=== PATIENT | male | born 1960 | race Caucasian/White ===

== ENCOUNTER 2017-07-28 15:13 | Inpatient (IN) | payer OTHER ==
--- NOTE | 2017-07-28 18:15 | HP ---
Admission ROS [facility] - [facility] Chief Complaint: I WANT TO GO TO REHAB Allergies/Adverse Reactions: Allergies Allergy/AdvReac Type Severity Reaction Status Date / Time No Known Allergies Allergy Verified 03/22/15 17:15 History of Present Illness: 56 YEARS OLD MALE WITH LONG HISTORY OF ALCOHOL NICOTINE DEPENDENCE HAS CHRONIC BACK PAIN, SURGICAL REPAIRED 12/2016 AMBULATE WITH CANE AND DEPRESSION IS ADMITTED TO REHAB Exam Limitations: No Limitations - Ebola screening Have you traveled outside of the country in the last 21 days: No Have you had contact with anyone from an Ebola affected area: No Have you been sick,other than usual withdrawal symptoms: No Do you have a fever: No - Review of Systems Constitutional: Changes in sleep, Weight Stable EENT: reports: Blurred Vision (EYE GLASSES) Respiratory: reports: No Symptoms reported Cardiac: reports: No Symptoms Reported GI: reports: Indigestion : reports: No Symptoms Reported Musculoskeletal: reports: Back Pain, Muscle Weakness (BOTH LEGS) Integumentary: reports: No Symptoms Reported Neuro: reports: No Symptoms reported Endocrine: reports: No Symptoms Reported Hematology: reports: No Symptoms Reported Psychiatric: reports: Judgement Intact, Orientated x3, Anxious, Depressed Other Systems: Reviewed and Negative Patient History - Patient Medical History Hx Anemia: No Hx Asthma: No Hx Chronic Obstructive Pulmonary Disease (COPD): No Hx Cancer: No Hx Cardiac Disorders: No Hx Congestive Heart Failure: No Hx Hypertension: Yes (DIETARY CONTROL) Hx Hypercholesterolemia: No Hx Pacemaker: No HX Cerebrovascular Accident: No Hx Seizures: No Hx Dementia: No Hx Diabetes: No Hx Gastrointestinal Disorders: Yes (epigastric hernia) Hx Liver Disease: No Hx Genitourinary Disorders: No Hx Sexually Transmitted Disorders: No Hx Renal Disease (ESRD): No Hx Thyroid Disease: No Hx Human Immunodeficiency Virus (HIV): No Hx Hepatitis C: Yes (PROCESS OF TREATMENT) Hx Depression: Yes (08/23 last) Hx Suicide Attempt: No Hx Bipolar Disorder: No Hx Schizophrenia: No - Patient Surgical History Past Surgical History: Yes Hx Neurologic Surgery: Yes (NEUROPATHY) Hx Cataract Extraction: No Hx Cardiac Surgery: No Hx Lung Surgery: No Hx Breast Surgery: No Hx Breast Biopsy: No Hx Abdominal Surgery: No Hx Appendectomy: No Hx Cholecystectomy: No Hx Genitourinary Surgery: No Hx Orthopedic Surgery: Yes (12/2016) Other Surgical History: s/p back surgery for herniated disc Anesthesia Reaction: No - PPD History Previous Implant?: Yes Documented Results: Positive w/proof Implanted On Prior [facility] Admission?: No PPD to be Administered?: No - Smoking Cessation Smoking history: Current every day smoker Have you smoked in the past 12 months: Yes Aproximately how many cigarettes per day: 10 Cigars Per Day: 0 Hx Chewing Tobacco Use: No Initiated information on smoking cessation: Yes 'Breaking Loose' booklet given: 07/28/17 - Substance & Tx. History Hx Alcohol Use: Yes Hx Substance Use: No Substance Use Type: Alcohol Hx Substance Use Treatment: Yes (07/2017 [facility]) - Substances Abused Alcohol Route: Oral Frequency: Daily Amount used: FIFTH VOLKA Age of first use: 16 Date of Last Use: 07/21/17 Family Disease History - Family Disease History Family Disease History: Heart Disease: Mother, CA: Father (/), Other: Father Admission Physical Exam [facility] - Vital Signs Vital Signs: Vital Signs - 24 hr 07/28/17 17:26 Temperature 97.7 F Pulse Rate 80 Respiratory 20 Rate Blood Pressure 143/95 - Physical General Appearance: Yes: No Apparent Distress, Nourished, Appropriately Dressed HEENTM: Yes: Hearing grossly Normal, Normal ENT Inspection, Normocephalic, Normal Voice Respiratory: Yes: Chest Non-Tender, Lungs Clear, Normal Breath Sounds, No Respiratory Distress, No Accessory Muscle Use Neck: Yes: Supple, Trachea in good position Breast: Yes: Breasts Symetrical Cardiology: Yes: Regular Rhythm, Regular Rate, S1, S2 Abdominal: Yes: Normal Bowel Sounds, Non Tender, Soft Genitourinary: Yes: Within Normal Limits Back: Yes: Normal Inspection Musculoskeletal: Yes: full range of Motion, Gait Steady (CANE), Back pain, Muscle Pain, Muscle weakness (LEGS) Extremities: Yes: Normal Inspection, Normal Range of Motion (CANE), Non-Tender Neurological: Yes: Fully Oriented, Alert, Normal Response, Depressed Affect Integumentary: Yes: Warm Lymphatic: Yes: Within Normal Limits - Diagnostic (1) Nicotine dependence Current Visit: Yes Status: Acute Qualifiers: Nicotine product type: cigarettes Substance use status: in withdrawal Qualified Code(s): F17.213 - Nicotine dependence, cigarettes, with withdrawal (2) Low back pain Current Visit: Yes Status: Chronic Qualifiers: Chronicity: chronic Back pain laterality: bilateral Sciatica presence: with sciatica Sciatica laterality: bilateral sciatica Qualified Code(s): M54.42 - Lumbago with sciatica, left side; M54.41 - Lumbago with sciatica, right side; G89.29 - Other chronic pain (3) Alcohol dependence with uncomplicated withdrawal Current Visit: Yes Status: Acute (4) GERD (gastroesophageal reflux disease) Current Visit: Yes Status: Chronic Qualifiers: Esophagitis presence: without esophagitis Qualified Code(s): K21.9 - Gastro-esophageal reflux disease without esophagitis (5) Hepatitis C carrier Current Visit: Yes Status: Chronic Comment: PROCESSING OF TREATMENT (6) Neuropathy Current Visit: Yes Status: Chronic (7) Depression (emotion) Current Visit: Yes Status: Suspected Qualifiers: Depression Type: dysthymia Qualified Code(s): F34.1 - Dysthymic disorder (8) Use of cane as ambulatory aid Current Visit: Yes Status: Chronic Cleared for Admission S - Detox or Rehab [facility] Level of Care: Observation Bed Detox Regimen/Protocol: Not Applicable [facility] Breath Alcohol Content Breath Alcohol Content: 0 Vital Signs - Vital Signs Vital Signs Refused: No - Height Height: 5 ft 7 in - Weight Weight: 175 lb Weight Measurement Method: Standing Scale Body Mass Index (BMI): 27.3 - Bowel Function Bowel Movement: Yes Urine Drug Screen - Results Drug Screen Negative: No Urine Drug Screen Results: BZO-Benzodiazepines
[2017-07-28 18:21] VITALS: BMI 27.3
[2017-07-28] MEDS ORDERED: MENTHOL/PHENOL 1 EACH UD MM PRN (18:31)
[2017-07-28] MEDS ORDERED: P-EPHED 60MG/TRIPROLIDI 2.5MG TABLET PO PRN (18:31)
[2017-07-28] MEDS ORDERED: LOPERAMIDE HCL 2 MG CAPSULE PO PRN (18:31)
[2017-07-28] MEDS ORDERED: guaiFENesin/D-METHORPHAN HB 10 ML UNIT-DOSE CUPS PO PRN (18:31)
[2017-07-28] MEDS ORDERED: hydrOXYzine PAMOATE 50 MG CAPSULE (FP) PO PRN (18:31)
[2017-07-28] MEDS ORDERED: MAGNESIUM CITRATE 300 ML BOTTLE PO PRN (18:31)
[2017-07-28] MEDS ORDERED: MAGNESIUM HYDROX 2400MG/30ML ORAL SUSPENSION 30 ML CUP PO PRN (18:31)
[2017-07-28] MEDS: GABAPENTIN 400 MG CAPSULE (FP) PO SCH (22:15)
[2017-07-28] MEDS: RANITIDINE HCL 150 MG TABLET (FP) PO SCH (22:15)
[2017-07-28] MEDS: THIAMINE HCL 100 MG TABLET (FP) PO SCH (22:16)
[2017-07-28 23:31] LABS: URINE APPEARANCE CLOUDY; URINE BILIRUBIN NEGATIVE (NEGATIVE); URINE BLOOD NEGATIVE (NEGATIVE); URINE COLOR DKYELLOW; URINE GLUCOSE (UA) NEGATIVE (NEGATIVE); URINE KETONE TRACE (NEGATIVE); URINE LEUK ESTERASE NEGATIVE (NEGATIVE); URINE NITRITE NEGATIVE (NEGATIVE); URINE PROTEIN NEGATIVE (NEGATIVE); URINE UROBILINOGEN NEGATIVE mg/dL (0.2-1.0)
[2017-07-29] MEDS: GABAPENTIN 400 MG CAPSULE (FP) PO SCH ×3 (06:15→21:45)
[2017-07-29] MEDS: PRENATAL VITAMINS W/ FOLIC ACID TABLET (FP) PO SCH (10:40)
[2017-07-29] MEDS: RANITIDINE HCL 150 MG TABLET (FP) PO SCH ×2 (10:40→21:45)
[2017-07-29] MEDS: NICOTINE 14 MG/24 HOURS TOPICAL PATCH TD SCH (10:40)
[2017-07-29] MEDS: PATIENT'S OWN MEDICATION (NON-FORMULARY) (Elbasvir/Grazoprevir [Zepatier 50-100 Mg Tablet] PO SCH (10:40)
[2017-07-29] MEDS: NICOTINE POLACRILEX 2 MG GUM BC PRN (10:42)
[2017-07-29] MEDS ORDERED: GABAPENTIN 400 MG CAPSULE (FP) PO ONE (11:12)
[2017-07-29] MEDS ORDERED: PNEUMOCOCCAL 23 VACCINE 0.5 ML VIAL IM ONE (12:00)
[2017-07-29] MEDS ORDERED: PNEUMOC 13-VAL CONJ-DIP CRM/PF 0.5 ML DISP.SYRIN IM ONE (12:00)
[2017-07-29 14:08] LABS: MCH 28.2 pg (25.7-33.7); MCHC 32.2 g/dl (32.0-35.9); MEAN CELL VOLUME 87.7 fl (80-96); MEAN PLT VOLUME 9.3 fl (7.5-11.1); PLATELET COUNT 224 K/MM3 (134-434); RDW 16.6 % (11.9-15.9); WHITE BLOOD COUNT 7.4 K/mm3 (4.0-10.0)
[2017-07-29 14:17] LABS: CALCIUM 9.3 mg/dL (8.5-10.1)
[2017-07-29 14:24] LABS: ALK PHOS 73 U/L (45-117); ANION GAP 9 (8-16); BILIRUBIN,TOTAL 0.6 mg/dL (0.2-1.0); CO2 30 mmol/L (21-32); GLUCOSE,RANDOM 157 mg/dL (74-106); SGOT/AST 14 U/L (15-37); SGPT/ALT 19 U/L (12-78); TOT PROT 7.3 g/dl (6.4-8.2)
--- NOTE | 2017-07-29 15:33 | HP ---
Psychiatrist Admission - Data Date of interview: 07/29/17 Admission source: [facility] Identifying data: THis is the first 5N inpatient rehabilitation admissoon for this 56 year old male unemployed supported by on welfare, residing in the [place], he is a father of 4. Medical History: HTN, Asthma, Back-pain, Hep C, Sciatica, smokes cigarettes 4 a day. 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 Reports started to see a psychiatrist 3 years ago, reports 3 psychiatric hospitalizations at [facility] and [place],most recently visited [facility] due to suicidal thoughts, was there 2 days for observations, was provided with medication Zoloft 50 mg po hs, Ambien 10, sees at [facility]. Reports having panic attacks, with SOB and sweats. Physical/Sexual Abuse/Trauma History: see the above Vital Signs: Vital Signs - 24 hr 07/28/17 07/28/17 07/29/17 17:26 22:10 03:30 Temperature 97.7 F 97.7 F Pulse Rate 80 71 Respiratory 20 18 16 Rate Blood Pressure 143/95 140/79 07/29/17 07:23 Temperature 97.3 F L Pulse Rate 71 Respiratory 18 Rate Blood Pressure 102/77 Allergies/Adverse Reactions: Allergies Allergy/AdvReac Type Severity Reaction Status Date / Time No Known Allergies Allergy Verified 03/22/15 17:15 Date of last physical exam: 07/28/17 Concur with the findings of this exam: Yes - Substance Abuse/Tx History Hx Alcohol Use: Yes (vodka 3 pints a day ) Hx Substance Use: No Substance Use Type: None Hx Substance Use Treatment: Yes - Admission Criteria Previous failed treatment: Yes Poor recovery environment: Yes Comorbidities: Yes Lacks judgement: Yes Mental Status Exam - Mental Status Exam Alert and Oriented to: Time, Place, Person Cognitive Function: Grossly Intact Patient Appearance: Well Groomed Mood: Depressed, Sad, Anxious Affect: Appropriate, Mood Congruent Patient Behavior: Appropriate, Cooperative Speech Pattern: Appropriate Voice Loudness: Normal Thought Process: Intact, Goal Oriented Thought Disorder: Not Present Hallucinations: Denies Suicidal Ideation: Denies Homicidal Ideation: Denies Insight/Judgement: Fair Sleep: Poorly, Difficulty falling asleep Appetite: Fair Muscle strength/Tone: Normal Gait/Station: Other (walking with a cane) Psychiatric Findings - Problem List ([place] 1, 2,3) (1) Nicotine dependence Current Visit: Yes Status: Acute Qualifiers: Nicotine product type: cigarettes Substance use status: in withdrawal Qualified Code(s): F17.213 - Nicotine dependence, cigarettes, with withdrawal (2) GERD (gastroesophageal reflux disease) Current Visit: Yes Status: Chronic Qualifiers: Esophagitis presence: without esophagitis Qualified Code(s): K21.9 - Gastro-esophageal reflux disease without esophagitis (3) Hepatitis C carrier Current Visit: Yes Status: Chronic Comment: PROCESSING OF TREATMENT (4) Use of cane as ambulatory aid Current Visit: Yes Status: Chronic (5) MDD (major depressive disorder) Current Visit: Yes Status: Acute (6) PTSD (post-traumatic stress disorder) Current Visit: Yes Status: Acute - Initial Treatment Plan Initial Treatment Plan: will restart Zoloft 25 mg po daily, add seroquel 25 mg po hs, continue to monitor progress.
[2017-07-29] MEDS: QUEtiapine FUMARATE 25 MG TABLET (FP) PO SCH (21:45)
[2017-07-29] MEDS: THIAMINE HCL 100 MG TABLET (FP) PO SCH (21:46)
--- NOTE | 2017-07-29 22:27 | EKG ---
Test Reason : Blood Pressure : / mmHG Vent. Rate : 068 BPM Atrial Rate : 068 BPM P-R Int : 158 ms QRS Dur : 086 ms QT Int : 368 ms P-R-T Axes : 066 018 024 degrees QTc Int : 391 ms NORMAL SINUS RHYTHM MODERATE VOLTAGE CRITERIA FOR LVH, MAY BE NORMAL VARIANT RSR' PATTERN IN V1 BORDERLINE ECG NO PREVIOUS ECGS AVAILABLE REPEAT EKG IF CLINICALLY INDICATED Confirmed by SPRING CARRASQUILLO MD ([id number] on 07/29/2017 10:27:12 PM Referred By: Confirmed By:SPRING CARRASQUILLO MD
[2017-07-30] MEDS: GABAPENTIN 400 MG CAPSULE (FP) PO SCH ×3 (06:50→21:45)
[2017-07-30] MEDS: RANITIDINE HCL 150 MG TABLET (FP) PO SCH ×2 (10:44→21:45)
[2017-07-30] MEDS: PRENATAL VITAMINS W/ FOLIC ACID TABLET (FP) PO SCH (10:44)
[2017-07-30] MEDS: SERTRALINE HCL 50 MG TABLET (FP) PO SCH (10:44)
[2017-07-30] MEDS: PATIENT'S OWN MEDICATION (NON-FORMULARY) (Elbasvir/Grazoprevir [Zepatier 50-100 Mg Tablet] PO SCH (10:44)
[2017-07-30] MEDS: NICOTINE 14 MG/24 HOURS TOPICAL PATCH TD SCH (10:45)
[2017-07-30] MEDS: NICOTINE POLACRILEX 2 MG GUM BC PRN (14:17)
[2017-07-30] MEDS: QUEtiapine FUMARATE 25 MG TABLET (FP) PO SCH (21:45)
[2017-07-30] MEDS: THIAMINE HCL 100 MG TABLET (FP) PO SCH (21:45)
[2017-07-30] MEDS: diphenhydrAMINE HCL 50 MG CAPSULE PO PRN (21:46)
[2017-07-31] MEDS: GABAPENTIN 400 MG CAPSULE (FP) PO SCH ×3 (06:09→21:49)
[2017-07-31] MEDS: RANITIDINE HCL 150 MG TABLET (FP) PO SCH ×2 (10:39→21:49)
[2017-07-31] MEDS: PRENATAL VITAMINS W/ FOLIC ACID TABLET (FP) PO SCH (10:39)
[2017-07-31] MEDS: NICOTINE 14 MG/24 HOURS TOPICAL PATCH TD SCH (10:39)
[2017-07-31] MEDS: SERTRALINE HCL 50 MG TABLET (FP) PO SCH (10:40)
[2017-07-31] MEDS: PATIENT'S OWN MEDICATION (NON-FORMULARY) (Elbasvir/Grazoprevir [Zepatier 50-100 Mg Tablet] PO SCH (11:00)
[2017-07-31] MEDS: THIAMINE HCL 100 MG TABLET (FP) PO SCH (21:49)
[2017-07-31] MEDS: diphenhydrAMINE HCL 50 MG CAPSULE PO PRN (21:49)
[2017-07-31] MEDS: QUEtiapine FUMARATE 25 MG TABLET (FP) PO SCH (21:49)
[2017-08-01] MEDS: GABAPENTIN 400 MG CAPSULE (FP) PO SCH ×3 (06:05→21:44)
[2017-08-01] MEDS: NICOTINE 14 MG/24 HOURS TOPICAL PATCH TD SCH (10:32)
[2017-08-01] MEDS: RANITIDINE HCL 150 MG TABLET (FP) PO SCH ×2 (10:32→21:44)
[2017-08-01] MEDS: SERTRALINE HCL 50 MG TABLET (FP) PO SCH ×2 (10:32→12:03)
[2017-08-01] MEDS: PRENATAL VITAMINS W/ FOLIC ACID TABLET (FP) PO SCH (10:32)
[2017-08-01] MEDS: PATIENT'S OWN MEDICATION (NON-FORMULARY) (Elbasvir/Grazoprevir [Zepatier 50-100 Mg Tablet] PO SCH (10:35)
--- NOTE | 2017-08-01 10:49 | PN ---
Psychiatric Progress Note Vital Signs: Vital Signs Period Temp Pulse Resp BP Sys/Taylor Pulse Ox Last 24 Hr 97.5 F 74 16-18 139/85 Date of Session: 08/01/17 Chief Complaint:: "I am anxious, I hear voices" HPI: Patient is addressing alcohol, nicotine dependence comorbid PTSD, MDD. ROS: HTN, Asthma, Back-pain, Hep C, Sciatica medically managed. Current Medications: Active Medications Generic Name Dose Route Start Last Admin Trade Name Freq PRN Reason Stop Dose Admin Acetaminophen 650 mg 07/28/17 18:31 Tylenol - PO Q4H PRN PAIN Al Hydroxide/Mg Hydroxide 30 ml 07/28/17 18:31 Mylanta Oral Suspension - PO Q6H PRN DYSPEPSIA Diphenhydramine HCl 50 mg 07/28/17 18:31 07/31/17 21:49 Benadryl - PO 50 mg HSMR1 PRN Administration INSOMNIA Eucalyptus/Menthol/Phenol/Sorbitol 1 each 07/28/17 18:31 Cepastat Lozenge - MM Q4H PRN SORE THROAT Gabapentin 800 mg 07/28/17 22:00 08/01/17 06:05 Neurontin - PO 800 mg TID NEISHA Administration Guaifenesin 10 ml 07/28/17 18:31 Robitussin Dm - PO Q6H PRN COUGH Hydroxyzine Pamoate 50 mg 07/28/17 18:31 Vistaril - PO Q4H PRN AGITATION Loperamide HCl 4 mg 07/28/17 18:31 Imodium - PO Q6H PRN DIARRHEA Magnesium Citrate 300 ml 07/28/17 18:31 Citroma - PO Q48H PRN CONSTIPATION Magnesium Hydroxide 30 ml 07/28/17 18:31 Milk Of Magnesia - PO DAILY PRN CONSTIPATION Nicotine 14 mg 07/29/17 10:00 08/01/17 10:32 Nicoderm Patch - TD 14 mg DAILY NEISHA Administration Nicotine Polacrilex 2 mg 07/28/17 18:31 07/30/17 14:17 Nicorette Gum - BC 2 mg Q2H PRN Administration NICOTINE REPLACEMENT RX Non-Formulary Medication 1 each 07/29/17 10:00 08/01/17 10:35 Elbasvir/Grazoprevir [Zepatier 50-100 Mg Tablet] PO 1 each DAILY NEISHA Administration Multivit/Folic Acid/Iron 1 tab 07/29/17 10:00 08/01/17 10:32 Vitamins ([facility]) - PO 1 tab DAILY NEISHA Administration Pseudoephedrine/Triprolidine 1 combo 07/28/17 18:31 Actifed - PO TID PRN NASAL CONGESTION Quetiapine Fumarate 75 mg 08/01/17 10:39 Seroquel - PO HS NEISHA Ranitidine HCl 150 mg 07/28/17 22:00 08/01/17 10:32 Zantac - PO 150 mg BID NEISHA Administration Sertraline HCl 100 mg 08/01/17 10:39 Zoloft - PO DAILY NEISHA Thiamine HCl 100 mg 07/28/17 22:00 07/31/17 21:49 Vitamin B1 - PO 100 mg HS NEISHA Administration Current Side Effect: No Lab tests ordered: No Lab tests reviewed: Yes Provider note:: Patient reports he feels very anxious and hears voices, people screeming, calling for help, states all this related to his experience on 07/21, having flashbacks to this traumatic event in 2000. Patient reports he is able to address it in groups but he gats very emotinal. Supportive therapy provided , ways to reduce stress discussed. Psychoducation regarding his current medications provided, recommended to increase Seroquel 75 mg po hs and Zoloft to 100 mg po daily, patient agreed with care plan. Will continue to monitor progress. Total face to face time:: 35 Mental Status Exam - Mental Status Exam Alert and Oriented to: Time, Place, Person Cognitive Function: Good Patient Appearance: Well Groomed Mood: Depressed, Sad, Anxious Affect: Mood Congruent, Blunted, Constricted Patient Behavior: Cooperative Speech Pattern: Appropriate Voice Loudness: Normal Thought Process: Goal Oriented Thought Disorder: Not Present Hallucinations: Auditory (people screaming for help) Suicidal Ideation: Denies Homicidal Ideation: Denies Insight/Judgement: Fair Sleep: Poorly Appetite: Fair Muscle strength/Tone: Normal Gait/Station: Other (walking with cane) Psychiatric Treatment Plan - Problem List (1) Nicotine dependence Current Visit: Yes Qualifiers: Nicotine product type: cigarettes Substance use status: in withdrawal Qualified Code(s): F17.213 - Nicotine dependence, cigarettes, with withdrawal (2) GERD (gastroesophageal reflux disease) Current Visit: Yes Qualifiers: Esophagitis presence: without esophagitis Qualified Code(s): K21.9 - Gastro-esophageal reflux disease without esophagitis (3) Hepatitis C carrier Current Visit: Yes Comment: PROCESSING OF TREATMENT (4) Use of cane as ambulatory aid Current Visit: Yes (5) MDD (major depressive disorder) Current Visit: Yes (6) PTSD (post-traumatic stress disorder) Current Visit: Yes
[2017-08-01] MEDS: QUEtiapine FUMARATE 25 MG TABLET (FP) PO SCH ×2 (12:03→21:44)
--- NOTE | 2017-08-01 12:46 | PN ---
S Progress Note Note: PT REQUESTING LIDOCAINE PATCH FOR CHRONIC LOW BACK PAIN. STATUS POST TRAUMA/ SURGERY MED. ORDERED.
--- NOTE | 2017-08-01 12:49 | PN ---
[facility] Progress Note (SOAP) Subjective: PATIENT C/O CHRONIC LOW BACK PAIN S/P SURGERY 2/2 TRAUMA Objective: 08/01/17 12:47 Vital Signs - 8 hr 08/01/17 06:55 Temperature 97.5 F L Pulse Rate 74 Respiratory 16 Rate Blood Pressure 139/85 Laboratory Tests 07/28/17 07/29/17 07/29/17 23:10 08:30 08:30 WBC 7.4 D RBC 5.01 Hgb 14.1 Hct 43.9 MCV 87.7 MCH 28.2 MCHC 32.2 RDW 16.6 H Plt Count 224 MPV 9.3 Sodium 139 Potassium 4.2 Chloride 100 Carbon Dioxide 30 Anion Gap 9 BUN 17 Creatinine 1.0 Creat Clearance w eGFR > 60 POC Glucometer Random Glucose 157 H D Calcium 9.3 Total Bilirubin 0.6 D AST 14 L D ALT 19 D Alkaline Phosphatase 73 Total Protein 7.3 Albumin 4.0 Urine Color Dkyellow Urine Appearance Cloudy Urine pH 8.0 D Ur Specific Occidental 1.015 Urine Protein Negative Urine Glucose (UA) Negative Urine Ketones Trace H Urine Blood Negative Urine Nitrite Negative Urine Bilirubin Negative Urine Urobilinogen Negative RPR Titer 07/29/17 08/01/17 08:30 06:27 WBC RBC Hgb Hct MCV MCH MCHC RDW Plt Count MPV Sodium Potassium Chloride Carbon Dioxide Anion Gap BUN Creatinine Creat Clearance w eGFR POC Glucometer 85 Random Glucose Calcium Total Bilirubin AST ALT Alkaline Phosphatase Total Protein Albumin Urine Color Urine Appearance Urine pH Ur Specific Occidental Urine Protein Urine Glucose (UA) Urine Ketones Urine Blood Urine Nitrite Urine Bilirubin Urine Urobilinogen RPR Titer Nonreactive Assessment: 08/01/17 12:47 CHRONIC LOW BACK 2/2 TRAUMA, BILATEERAL SCARS ON LOWER BACK S/P SURGERY, NO INFECTION MOVING WITH CANE Plan: LIDODERM PATCH ORDERED.
[2017-08-01] MEDS: LIDOCAINE 5% TOPICAL PATCH TP SCH (14:24)
[2017-08-01] MEDS: THIAMINE HCL 100 MG TABLET (FP) PO SCH (21:44)
[2017-08-01] MEDS: diphenhydrAMINE HCL 50 MG CAPSULE PO PRN (21:45)
[2017-08-01] MEDS: LIDOCAINE PATCH REMOVAL MC SCH (21:45)
[2017-08-02] MEDS: GABAPENTIN 400 MG CAPSULE (FP) PO SCH ×3 (06:02→21:08)
[2017-08-02] MEDS: SERTRALINE HCL 50 MG TABLET (FP) PO SCH (10:48)
[2017-08-02] MEDS: PRENATAL VITAMINS W/ FOLIC ACID TABLET (FP) PO SCH (10:48)
[2017-08-02] MEDS: NICOTINE 14 MG/24 HOURS TOPICAL PATCH TD SCH (10:48)
[2017-08-02] MEDS: RANITIDINE HCL 150 MG TABLET (FP) PO SCH ×2 (10:48→21:08)
[2017-08-02] MEDS: PATIENT'S OWN MEDICATION (NON-FORMULARY) (Elbasvir/Grazoprevir [Zepatier 50-100 Mg Tablet] PO SCH (10:49)
[2017-08-02] MEDS: LIDOCAINE 5% TOPICAL PATCH TP SCH (10:49)
[2017-08-02] MEDS: THIAMINE HCL 100 MG TABLET (FP) PO SCH (21:08)
[2017-08-02] MEDS: QUEtiapine FUMARATE 25 MG TABLET (FP) PO SCH (21:08)
[2017-08-02] MEDS: diphenhydrAMINE HCL 50 MG CAPSULE PO PRN (21:09)
[2017-08-02] MEDS: LIDOCAINE PATCH REMOVAL MC SCH (21:09)
[2017-08-02] MEDS: ACETAMINOPHEN 325 MG TABLET (FP) PO PRN (23:48)
[2017-08-03] MEDS: GABAPENTIN 400 MG CAPSULE (FP) PO SCH ×3 (06:03→21:42)
[2017-08-03] MEDS: PRENATAL VITAMINS W/ FOLIC ACID TABLET (FP) PO SCH (10:17)
[2017-08-03] MEDS: NICOTINE 14 MG/24 HOURS TOPICAL PATCH TD SCH (10:17)
[2017-08-03] MEDS: SERTRALINE HCL 50 MG TABLET (FP) PO SCH (10:17)
[2017-08-03] MEDS: RANITIDINE HCL 150 MG TABLET (FP) PO SCH ×2 (10:17→21:42)
[2017-08-03] MEDS: PATIENT'S OWN MEDICATION (NON-FORMULARY) (Elbasvir/Grazoprevir [Zepatier 50-100 Mg Tablet] PO SCH (10:18)
[2017-08-03] MEDS: LIDOCAINE 5% TOPICAL PATCH TP SCH (10:19)
[2017-08-03] MEDS: MAG HYDROX/AL HYDROX/SIMETH 30 ML UNIT-DOSE CUP PO PRN (18:06)
[2017-08-03] MEDS: THIAMINE HCL 100 MG TABLET (FP) PO SCH (21:41)
[2017-08-03] MEDS: QUEtiapine FUMARATE 25 MG TABLET (FP) PO SCH (21:42)
[2017-08-03] MEDS: diphenhydrAMINE HCL 50 MG CAPSULE PO PRN (21:42)
[2017-08-03] MEDS: LIDOCAINE PATCH REMOVAL MC SCH (21:43)
[2017-08-04] MEDS: GABAPENTIN 400 MG CAPSULE (FP) PO SCH ×3 (05:58→21:34)
[2017-08-04] MEDS: PRENATAL VITAMINS W/ FOLIC ACID TABLET (FP) PO SCH (10:49)
[2017-08-04] MEDS: NICOTINE 14 MG/24 HOURS TOPICAL PATCH TD SCH (10:51)
[2017-08-04] MEDS: LIDOCAINE 5% TOPICAL PATCH TP SCH (10:51)
[2017-08-04] MEDS: SERTRALINE HCL 50 MG TABLET (FP) PO SCH (10:51)
[2017-08-04] MEDS: RANITIDINE HCL 150 MG TABLET (FP) PO SCH ×2 (10:51→21:34)
[2017-08-04] MEDS: PATIENT'S OWN MEDICATION (NON-FORMULARY) (Elbasvir/Grazoprevir [Zepatier 50-100 Mg Tablet] PO SCH (10:54)
[2017-08-04] MEDS ORDERED: HYDROCORTISONE 0.5% TOPICAL CREAM 30 GM TUBE TP PRN (13:49)
[2017-08-04] MEDS: QUEtiapine FUMARATE 25 MG TABLET (FP) PO SCH (21:34)
[2017-08-04] MEDS: THIAMINE HCL 100 MG TABLET (FP) PO SCH (21:34)
[2017-08-04] MEDS: diphenhydrAMINE HCL 50 MG CAPSULE PO PRN (21:35)
[2017-08-04] MEDS: HYDROCORTISONE 0.5% TOPICAL CREAM 30 GM TUBE TP SCH (21:36)
[2017-08-04] MEDS: LIDOCAINE PATCH REMOVAL MC SCH (21:36)
[2017-08-04] MEDS: MAG HYDROX/AL HYDROX/SIMETH 30 ML UNIT-DOSE CUP PO PRN (23:20)
[2017-08-05] MEDS: GABAPENTIN 400 MG CAPSULE (FP) PO SCH ×3 (06:24→21:44)
[2017-08-05] MEDS: PATIENT'S OWN MEDICATION (NON-FORMULARY) (Elbasvir/Grazoprevir [Zepatier 50-100 Mg Tablet] PO SCH (10:31)
[2017-08-05] MEDS: HYDROCORTISONE 0.5% TOPICAL CREAM 30 GM TUBE TP SCH ×2 (10:32→22:21)
[2017-08-05] MEDS: LIDOCAINE 5% TOPICAL PATCH TP SCH (10:33)
[2017-08-05] MEDS: NICOTINE 14 MG/24 HOURS TOPICAL PATCH TD SCH (10:33)
[2017-08-05] MEDS: SERTRALINE HCL 50 MG TABLET (FP) PO SCH (10:34)
[2017-08-05] MEDS: PRENATAL VITAMINS W/ FOLIC ACID TABLET (FP) PO SCH (10:34)
[2017-08-05] MEDS: RANITIDINE HCL 150 MG TABLET (FP) PO SCH ×2 (10:35→21:44)
[2017-08-05] MEDS ORDERED: METHOCARBAMOL 500 MG TABLET PO ONE (20:04)
--- NOTE | 2017-08-05 20:13 | PN ---
[facility] Progress Note Note: RECEIVED NURSE INFORM THAT THE PATIENT HAS CHEST PAIN OBSERVED PATIENT AMBULATE ON [address] WITH CANE, SKIN WARM DRY, BREATH EVEN EASE , SPEECH CLEARLY, COHERENT, ALERT ORIENTED X 3 PATIENT STATES THAT SHARP 6/10 TO 8/10 PAIN LINE FROM RIGHT ANCILLARY TO MID CHEST SINCE 08/04/17 PAIN SCALE 8/10 IN THE MORNING 6/10 AT EVENING 0/10 AT NIGHT "I SLEPT THROUGH THE NIGHT". NORMAL EKG, PATIENT HAS NO ACUTE DISTRESS, ATTEND GROUP "I CAN CONCENTRATE" ONE DOSE OF MUSCLE RELAXANT 08/05/17 CONTINUE REHAB
[2017-08-05] MEDS: QUEtiapine FUMARATE 25 MG TABLET (FP) PO SCH (21:43)
[2017-08-05] MEDS: THIAMINE HCL 100 MG TABLET (FP) PO SCH (21:44)
[2017-08-05] MEDS: diphenhydrAMINE HCL 50 MG CAPSULE PO PRN (21:44)
[2017-08-05] MEDS: LIDOCAINE PATCH REMOVAL MC SCH (22:21)
[2017-08-06] MEDS: GABAPENTIN 400 MG CAPSULE (FP) PO SCH ×3 (06:57→21:59)
[2017-08-06] MEDS: PATIENT'S OWN MEDICATION (NON-FORMULARY) (Elbasvir/Grazoprevir [Zepatier 50-100 Mg Tablet] PO SCH (10:15)
[2017-08-06] MEDS: PRENATAL VITAMINS W/ FOLIC ACID TABLET (FP) PO SCH (10:16)
[2017-08-06] MEDS: SERTRALINE HCL 50 MG TABLET (FP) PO SCH (10:16)
[2017-08-06] MEDS: NICOTINE 14 MG/24 HOURS TOPICAL PATCH TD SCH (10:17)
[2017-08-06] MEDS: HYDROCORTISONE 0.5% TOPICAL CREAM 30 GM TUBE TP SCH ×2 (10:17→22:00)
[2017-08-06] MEDS: LIDOCAINE 5% TOPICAL PATCH TP SCH (10:17)
[2017-08-06] MEDS: RANITIDINE HCL 150 MG TABLET (FP) PO SCH ×2 (10:18→21:59)
[2017-08-06] MEDS: ACETAMINOPHEN 325 MG TABLET (FP) PO PRN (14:22)
[2017-08-06] MEDS: LIDOCAINE PATCH REMOVAL MC SCH (21:59)
[2017-08-06] MEDS: QUEtiapine FUMARATE 25 MG TABLET (FP) PO SCH (21:59)
[2017-08-06] MEDS: THIAMINE HCL 100 MG TABLET (FP) PO SCH (22:00)
[2017-08-06] MEDS: diphenhydrAMINE HCL 50 MG CAPSULE PO PRN (22:00)
[2017-08-07] MEDS: GABAPENTIN 400 MG CAPSULE (FP) PO SCH (06:24)
[2017-08-07] MEDS: RANITIDINE HCL 150 MG TABLET (FP) PO SCH ×2 (10:41→22:00)
[2017-08-07] MEDS: HYDROCORTISONE 0.5% TOPICAL CREAM 30 GM TUBE TP SCH ×2 (10:42→22:00)
[2017-08-07] MEDS: PRENATAL VITAMINS W/ FOLIC ACID TABLET (FP) PO SCH (10:42)
[2017-08-07] MEDS: NICOTINE 14 MG/24 HOURS TOPICAL PATCH TD SCH (10:42)
[2017-08-07] MEDS: LIDOCAINE 5% TOPICAL PATCH TP SCH (10:42)
[2017-08-07] MEDS: PATIENT'S OWN MEDICATION (NON-FORMULARY) (Elbasvir/Grazoprevir [Zepatier 50-100 Mg Tablet] PO SCH (10:42)
[2017-08-07] MEDS: SERTRALINE HCL 50 MG TABLET (FP) PO SCH (10:44)
[2017-08-07] MEDS ORDERED: HYDROCORTISONE 0.5% TOPICAL OINTMENT TUBE TP PRN (10:52)
[2017-08-07] MEDS ORDERED: GABAPENTIN 400 MG CAPSULE (FP) PO SCH (10:53)
[2017-08-07] MEDS ORDERED: SIMETHICONE 80 MG TAB.CHEW (FP) PO PRN (10:54)
[2017-08-07] MEDS ORDERED: LIDOCAINE HCL 5% TOP OINTMENT 50 GM TUBE TP ONE (11:01)
[2017-08-07] MEDS: NAPROXEN 500 MG TABLET (FP) PO SCH ×2 (12:36→22:00)
[2017-08-07] MEDS ORDERED: GABAPENTIN 400 MG CAPSULE (FP) ONE ×2 (13:43→22:35)
[2017-08-07] MEDS ORDERED: GABAPENTIN 100 MG CAPSULE (FP) ONE ×2 (13:44→22:35)
[2017-08-07] MEDS: GABAPENTIN PO SCH ×2 (13:44→23:54)
--- NOTE | 2017-08-07 14:19 | PN ---
Psychiatric Progress Note Vital Signs: Vital Signs Period Temp Pulse Resp BP Sys/Taylor Pulse Ox Last 24 Hr 97.4 F 81 18-20 115/99 Date of Session: 08/07/17 Chief Complaint:: "I am hear voices" HPI: Patient is addressing alcohol, nicotine dependence comorbid PTSD, MDD. ROS: HTN, Asthma, Back-pain, Hep C, Sciatica medically managed. Current Medications: Active Medications Generic Name Dose Route Start Last Admin Trade Name Freq PRN Reason Stop Dose Admin Acetaminophen 650 mg 07/28/17 18:31 08/06/17 14:22 Tylenol - PO 650 mg Q4H PRN Administration PAIN Al Hydroxide/Mg Hydroxide 30 ml 07/28/17 18:31 08/04/17 23:20 Mylanta Oral Suspension - PO 30 ml Q6H PRN Administration DYSPEPSIA Diphenhydramine HCl 50 mg 07/28/17 18:31 08/06/17 22:00 Benadryl - PO 50 mg HSMR1 PRN Administration INSOMNIA Eucalyptus/Menthol/Phenol/Sorbitol 1 each 07/28/17 18:31 Cepastat Lozenge - MM Q4H PRN SORE THROAT Gabapentin 800 mg/ Gabapentin 1,000 mg 08/07/17 14:00 08/07/17 13:44 200 mg PO 1,000 mg TID NEISHA Administration Guaifenesin 10 ml 07/28/17 18:31 Robitussin Dm - PO Q6H PRN COUGH Hydrocortisone 1 applic 08/04/17 22:00 08/07/17 10:42 Hytone 0.5% Cream - TP Not Given BID NEISHA Hydrocortisone 1 applic 08/07/17 10:52 Hytone 0.5% Ointment - TP BID PRN MILD PAIN Hydroxyzine Pamoate 50 mg 07/28/17 18:31 Vistaril - PO Q4H PRN AGITATION Lidocaine 1 patch 08/01/17 12:45 08/07/17 10:42 Lidoderm Patch - TP 1 patch DAILY NEISHA Administration Loperamide HCl 4 mg 07/28/17 18:31 Imodium - PO Q6H PRN DIARRHEA Magnesium Citrate 300 ml 07/28/17 18:31 Citroma - PO Q48H PRN CONSTIPATION Magnesium Hydroxide 30 ml 07/28/17 18:31 Milk Of Magnesia - PO DAILY PRN CONSTIPATION Miscellaneous 1 each 08/01/17 22:00 08/06/17 21:59 Lidoderm Patch Removal MC 1 each DAILY@2200 NEISHA Administration Naproxen 500 mg 08/07/17 11:00 08/07/17 12:36 Naprosyn - PO 500 mg BID NEISHA Administration Nicotine 14 mg 07/29/17 10:00 08/07/17 10:42 Nicoderm Patch - TD Not Given DAILY NEISHA Nicotine Polacrilex 2 mg 07/28/17 18:31 07/30/17 14:17 Nicorette Gum - BC 2 mg Q2H PRN Administration NICOTINE REPLACEMENT RX Non-Formulary Medication 1 each 07/29/17 10:00 08/07/17 10:42 Elbasvir/Grazoprevir [Zepatier 50-100 Mg Tablet] PO 1 each DAILY NEISHA Administration Multivit/Folic Acid/Iron 1 tab 07/29/17 10:00 08/07/17 10:42 Vitamins ([facility]jr) - PO 1 tab DAILY NEISAH Administration Pseudoephedrine/Triprolidine 1 combo 07/28/17 18:31 Actifed - PO TID PRN NASAL CONGESTION Ranitidine HCl 150 mg 07/28/17 22:00 08/07/17 10:41 Zantac - PO 150 mg BID NEISHA Administration Sertraline HCl 100 mg 08/01/17 11:09 08/07/17 10:44 Zoloft - PO 100 mg DAILY NEISHA Administration Simethicone 80 mg 08/07/17 10:54 Mylicon - PO Q4H PRN INDIGESTION Thiamine HCl 100 mg 07/28/17 22:00 08/06/17 22:00 Vitamin B1 - PO 100 mg HS NEISHA Administration Current Side Effect: No Lab tests ordered: No Lab tests reviewed: Yes Provider note:: Patient reports he hears voices which waking him up from sleeping, voices screaming for help, states he has flashbacks of traumatic experience on 07/21. Processed feelings related to this, supportive therapy provided, will increase Seroquel 150 mg po hs , continue to monitor progress. Total face to face time:: 25 Mental Status Exam - Mental Status Exam Alert and Oriented to: Time, Place, Person Cognitive Function: Grossly Intact Patient Appearance: Well Groomed Mood: Depressed, Sad Affect: Mood Congruent, Constricted Patient Behavior: Cooperative Speech Pattern: Clear, Appropriate Voice Loudness: Normal Thought Process: Goal Oriented Thought Disorder: Not Present Hallucinations: Auditory Suicidal Ideation: Denies Homicidal Ideation: Denies Insight/Judgement: Fair Sleep: Fair Appetite: Fair Muscle strength/Tone: Normal Gait/Station: Other Psychiatric Treatment Plan - Problem List (1) Nicotine dependence Current Visit: Yes Qualifiers: Nicotine product type: cigarettes Substance use status: in withdrawal Qualified Code(s): F17.213 - Nicotine dependence, cigarettes, with withdrawal (2) GERD (gastroesophageal reflux disease) Current Visit: Yes Qualifiers: Esophagitis presence: without esophagitis Qualified Code(s): K21.9 - Gastro-esophageal reflux disease without esophagitis (3) Hepatitis C carrier Current Visit: Yes Comment: PROCESSING OF TREATMENT (4) Use of cane as ambulatory aid Current Visit: Yes (5) MDD (major depressive disorder) Current Visit: Yes (6) PTSD (post-traumatic stress disorder) Current Visit: Yes
[2017-08-07] MEDS: QUEtiapine FUMARATE 50 MG TABLET PO SCH (21:59)
[2017-08-07] MEDS: LIDOCAINE PATCH REMOVAL MC SCH (22:00)
[2017-08-07] MEDS: THIAMINE HCL 100 MG TABLET (FP) PO SCH (22:01)
[2017-08-08] MEDS ORDERED: GABAPENTIN 400 MG CAPSULE (FP) ONE (01:16)
[2017-08-08] MEDS ORDERED: GABAPENTIN 100 MG CAPSULE (FP) ONE (01:16)
[2017-08-08] MEDS: GABAPENTIN PO SCH (06:02)
[2017-08-08] MEDS: SERTRALINE HCL 50 MG TABLET (FP) PO SCH (10:31)
[2017-08-08] MEDS: RANITIDINE HCL 150 MG TABLET (FP) PO SCH ×2 (10:31→21:49)
[2017-08-08] MEDS: NAPROXEN 500 MG TABLET (FP) PO SCH ×2 (10:31→21:50)
[2017-08-08] MEDS: PRENATAL VITAMINS W/ FOLIC ACID TABLET (FP) PO SCH (10:31)
[2017-08-08] MEDS ORDERED: ACYCLOVIR 400 MG TABLET PO ONE (11:02)
[2017-08-08] MEDS ORDERED: AMITRIPTYLINE HCL 25 MG TABLET (FP) PO ONE (11:23)
--- NOTE | 2017-08-08 11:23 | PN ---
[facility] Progress Note Note: pATIENT HAS BEEN C/O TINGLING SENSATION LEFT CHEST WALL AND CHRONIC LOW BACK PAIN FOR SEVERAL DAYS, WAS STARTED ONNAPROSYN AND GABAPENTIN. tODAY HAS VESICULAR RASH, NO FLUIDS NOTED INCREASINGLY PAINFUL RIGHT ANTERIORA CHEST WALL IN DERMATOMAL DISTRIBUTION. A/P: SHINGLES, NEVER HAD BEFORE, TAKING ANTIVIRALS FOR hEP C, NO T HIV+ D/W PSYCHAITRIST AND COUNSELOR. WILL INCREASE NEURONTIN TO MAX DOSE 1200MG TID, CONT NAPROSYN BID WITH PROTONIX, START ELAVIL 25MG Qhs AT NIGHT X1 DOSE NOW FOR PAIN AND ACYSLCOIR 800MG TI D WITH 800MG LOADING ODSNOW. nURSES TO COVER WITH GAUZE ANDPATIENT ADVISED TO WASH HANDS FREQUENTLY AND AFTER TOUCHING OWUND. D/ W DR. Myles CRUZ NO NEED FOR ISOLATION, CAN REMAIN IN PROGRAM.
[2017-08-08] MEDS: HYDROCORTISONE 0.5% TOPICAL CREAM 30 GM TUBE TP SCH ×2 (11:52→21:51)
[2017-08-08] MEDS: NICOTINE 14 MG/24 HOURS TOPICAL PATCH TD SCH (11:55)
[2017-08-08] MEDS: LIDOCAINE 5% TOPICAL PATCH TP SCH (12:02)
[2017-08-08] MEDS: PATIENT'S OWN MEDICATION (NON-FORMULARY) (Elbasvir/Grazoprevir [Zepatier 50-100 Mg Tablet] PO SCH (12:03)
[2017-08-08] MEDS: GABAPENTIN 400 MG CAPSULE (FP) PO SCH ×2 (14:33→21:49)
[2017-08-08] MEDS: CYCLOBENZAPRINE HCL 5 MG TABLET PO SCH ×2 (14:33→21:51)
[2017-08-08] MEDS: ACYCLOVIR 400 MG TABLET PO SCH (15:20)
[2017-08-08] MEDS: AMITRIPTYLINE HCL 25 MG TABLET (FP) PO SCH (21:50)
[2017-08-08] MEDS: QUEtiapine FUMARATE 50 MG TABLET PO SCH (21:50)
[2017-08-08] MEDS: LIDOCAINE PATCH REMOVAL MC SCH (21:51)
[2017-08-08] MEDS: THIAMINE HCL 100 MG TABLET (FP) PO SCH (21:51)
[2017-08-08] MEDS: diphenhydrAMINE HCL 50 MG CAPSULE PO PRN (21:51)
[2017-08-08] MEDS ORDERED: AMITRIPTYLINE HCL 25 MG TABLET (FP) PO SCH (22:00)
[2017-08-09] MEDS: GABAPENTIN 400 MG CAPSULE (FP) PO SCH ×3 (06:38→21:40)
[2017-08-09] MEDS: CYCLOBENZAPRINE HCL 5 MG TABLET PO SCH ×3 (06:38→21:40)
[2017-08-09] MEDS: ACYCLOVIR 400 MG TABLET PO SCH ×4 (06:39→21:42)
[2017-08-09] MEDS: NAPROXEN 500 MG TABLET (FP) PO SCH ×2 (10:30→21:40)
[2017-08-09] MEDS: PRENATAL VITAMINS W/ FOLIC ACID TABLET (FP) PO SCH (10:30)
[2017-08-09] MEDS: RANITIDINE HCL 150 MG TABLET (FP) PO SCH ×2 (10:30→21:40)
[2017-08-09] MEDS: NICOTINE 14 MG/24 HOURS TOPICAL PATCH TD SCH (10:31)
[2017-08-09] MEDS: LIDOCAINE 5% TOPICAL PATCH TP SCH (10:31)
[2017-08-09] MEDS: HYDROCORTISONE 0.5% TOPICAL CREAM 30 GM TUBE TP SCH ×2 (10:31→21:43)
[2017-08-09] MEDS: SERTRALINE HCL 50 MG TABLET (FP) PO SCH (10:31)
[2017-08-09] MEDS: PATIENT'S OWN MEDICATION (NON-FORMULARY) (Elbasvir/Grazoprevir [Zepatier 50-100 Mg Tablet] PO SCH (10:31)
--- NOTE | 2017-08-09 13:08 | EKG ---
Test Reason : Blood Pressure : / mmHG Vent. Rate : 080 BPM Atrial Rate : 080 BPM P-R Int : 156 ms QRS Dur : 072 ms QT Int : 364 ms P-R-T Axes : 068 025 023 degrees QTc Int : 419 ms NORMAL SINUS RHYTHM NORMAL ECG WHEN COMPARED WITH ECG OF 28-JUL-2017 22:23, NO SIGNIFICANT CHANGE WAS FOUND Confirmed by KRISTINE RIDLEY MD ([id number]) on 08/09/2017 1:08:30 PM Referred By: Confirmed By:KRISTINE RIDLEY MD
[2017-08-09] MEDS: AMITRIPTYLINE HCL 25 MG TABLET (FP) PO SCH (21:39)
[2017-08-09] MEDS: THIAMINE HCL 100 MG TABLET (FP) PO SCH (21:39)
[2017-08-09] MEDS: QUEtiapine FUMARATE 50 MG TABLET PO SCH (21:40)
[2017-08-09] MEDS: diphenhydrAMINE HCL 50 MG CAPSULE PO PRN (21:41)
[2017-08-09] MEDS: LIDOCAINE PATCH REMOVAL MC SCH (21:41)
[2017-08-10] MEDS: GABAPENTIN 400 MG CAPSULE (FP) PO SCH ×3 (06:32→21:47)
[2017-08-10] MEDS: ACYCLOVIR 400 MG TABLET PO SCH ×3 (06:32→21:48)
[2017-08-10] MEDS: CYCLOBENZAPRINE HCL 5 MG TABLET PO SCH ×3 (06:32→21:47)
[2017-08-10] MEDS: SERTRALINE HCL 50 MG TABLET (FP) PO SCH (10:31)
[2017-08-10] MEDS: PATIENT'S OWN MEDICATION (NON-FORMULARY) (Elbasvir/Grazoprevir [Zepatier 50-100 Mg Tablet] PO SCH (10:31)
[2017-08-10] MEDS: RANITIDINE HCL 150 MG TABLET (FP) PO SCH ×2 (10:31→21:48)
[2017-08-10] MEDS: NAPROXEN 500 MG TABLET (FP) PO SCH ×2 (10:31→21:47)
[2017-08-10] MEDS: PRENATAL VITAMINS W/ FOLIC ACID TABLET (FP) PO SCH (10:32)
[2017-08-10] MEDS: LIDOCAINE 5% TOPICAL PATCH TP SCH (10:32)
[2017-08-10] MEDS: NICOTINE 14 MG/24 HOURS TOPICAL PATCH TD SCH (10:33)
[2017-08-10] MEDS: HYDROCORTISONE 0.5% TOPICAL CREAM 30 GM TUBE TP SCH ×2 (10:34→21:47)
[2017-08-10] MEDS: AMITRIPTYLINE HCL 25 MG TABLET (FP) PO SCH (21:46)
[2017-08-10] MEDS: QUEtiapine FUMARATE 50 MG TABLET PO SCH (21:46)
[2017-08-10] MEDS: diphenhydrAMINE HCL 50 MG CAPSULE PO PRN (21:47)
[2017-08-10] MEDS: THIAMINE HCL 100 MG TABLET (FP) PO SCH (21:47)
[2017-08-10] MEDS: LIDOCAINE PATCH REMOVAL MC SCH (21:47)
[2017-08-11] MEDS: CYCLOBENZAPRINE HCL 5 MG TABLET PO SCH ×3 (06:33→21:57)
[2017-08-11] MEDS: ACYCLOVIR 400 MG TABLET PO SCH ×2 (06:33→13:49)
[2017-08-11] MEDS: GABAPENTIN 400 MG CAPSULE (FP) PO SCH ×3 (06:33→21:56)
[2017-08-11] MEDS: SERTRALINE HCL 50 MG TABLET (FP) PO SCH (10:27)
[2017-08-11] MEDS: NAPROXEN 500 MG TABLET (FP) PO SCH ×2 (10:27→21:57)
[2017-08-11] MEDS: NICOTINE 14 MG/24 HOURS TOPICAL PATCH TD SCH (10:27)
[2017-08-11] MEDS: PRENATAL VITAMINS W/ FOLIC ACID TABLET (FP) PO SCH (10:27)
[2017-08-11] MEDS: RANITIDINE HCL 150 MG TABLET (FP) PO SCH ×2 (10:27→21:57)
[2017-08-11] MEDS: PATIENT'S OWN MEDICATION (NON-FORMULARY) (Elbasvir/Grazoprevir [Zepatier 50-100 Mg Tablet] PO SCH (10:28)
[2017-08-11] MEDS: LIDOCAINE 5% TOPICAL PATCH TP SCH (10:29)
[2017-08-11] MEDS: HYDROCORTISONE 0.5% TOPICAL CREAM 30 GM TUBE TP SCH ×2 (10:31→21:57)
--- NOTE | 2017-08-11 12:48 | PN ---
[facility] Progress Note (SOAP) Subjective: patient c/o pain waking him at night , come s and goes but much better controlled, rash has spread across chest Objective: 08/11/17 12:46 Vital Signs - 24 hr 08/11/17 08/11/17 08/11/17 00:30 03:30 06:23 Temperature 97.6 F Pulse Rate 82 Respiratory 18 18 20 Rate Blood Pressure 129/80 Laboratory Tests 07/28/17 07/29/17 07/29/17 23:10 08:30 08:30 WBC 7.4 D RBC 5.01 Hgb 14.1 Hct 43.9 MCV 87.7 MCH 28.2 MCHC 32.2 RDW 16.6 H Plt Count 224 MPV 9.3 Sodium 139 Potassium 4.2 Chloride 100 Carbon Dioxide 30 Anion Gap 9 BUN 17 Creatinine 1.0 Creat Clearance w eGFR > 60 POC Glucometer Random Glucose 157 H D Calcium 9.3 Total Bilirubin 0.6 D AST 14 L D ALT 19 D Alkaline Phosphatase 73 Total Protein 7.3 Albumin 4.0 Urine Color Dkyellow Urine Appearance Cloudy Urine pH 8.0 D Ur Specific [place] 1.015 Urine Protein Negative Urine Glucose (UA) Negative Urine Ketones Trace H Urine Blood Negative Urine Nitrite Negative Urine Bilirubin Negative Urine Urobilinogen Negative RPR Titer 07/29/17 08/01/17 08/02/17 08:30 06:27 06:01 WBC RBC Hgb Hct MCV MCH MCHC RDW Plt Count MPV Sodium Potassium Chloride Carbon Dioxide Anion Gap BUN Creatinine Creat Clearance w eGFR POC Glucometer 85 123 Random Glucose Calcium Total Bilirubin AST ALT Alkaline Phosphatase Total Protein Albumin Urine Color Urine Appearance Urine pH Ur Specific [place] Urine Protein Urine Glucose (UA) Urine Ketones Urine Blood Urine Nitrite Urine Bilirubin Urine Urobilinogen RPR Titer Nonreactive 08/03/17 08/04/17 08/05/17 06:03 05:58 06:24 WBC RBC Hgb Hct MCV MCH MCHC RDW Plt Count MPV Sodium Potassium Chloride Carbon Dioxide Anion Gap BUN Creatinine Creat Clearance w eGFR POC Glucometer 96 103 85 Random Glucose Calcium Total Bilirubin AST ALT Alkaline Phosphatase Total Protein Albumin Urine Color Urine Appearance Urine pH Ur Specific [place] Urine Protein Urine Glucose (UA) Urine Ketones Urine Blood Urine Nitrite Urine Bilirubin Urine Urobilinogen RPR Titer 08/08/17 06:03 WBC RBC Hgb Hct MCV MCH MCHC RDW Plt Count MPV Sodium Potassium Chloride Carbon Dioxide Anion Gap BUN Creatinine Creat Clearance w eGFR POC Glucometer 80 Random Glucose Calcium Total Bilirubin AST ALT Alkaline Phosphatase Total Protein Albumin Urine Color Urine Appearance Urine pH Ur Specific [place] Urine Protein Urine Glucose (UA) Urine Ketones Urine Blood Urine Nitrite Urine Bilirubin Urine Urobilinogen RPR Titer glucose controlled, vesicualr rash spread along dermatome medially chest wall, no sign of infction, lesions crusting, no wet open wounds, covered with gauze Assessment: 08/11/17 12:47 shingles Plan: cont acycolvir , increase elavil to 10mmg qHS for pain and sleep at [facility]
[2017-08-11] MEDS: QUEtiapine FUMARATE 50 MG TABLET PO SCH (21:56)
[2017-08-11] MEDS: LIDOCAINE PATCH REMOVAL MC SCH (21:57)
[2017-08-11] MEDS: AMITRIPTYLINE HCL 100 MG TABLET PO SCH (21:57)
[2017-08-11] MEDS: THIAMINE HCL 100 MG TABLET (FP) PO SCH (22:01)
[2017-08-11] MEDS: diphenhydrAMINE HCL 50 MG CAPSULE PO PRN (22:01)
[2017-08-12] MEDS: ACYCLOVIR 400 MG TABLET PO SCH ×4 (00:02→21:42)
[2017-08-12] MEDS: GABAPENTIN 400 MG CAPSULE (FP) PO SCH ×3 (06:17→21:43)
[2017-08-12] MEDS: CYCLOBENZAPRINE HCL 5 MG TABLET PO SCH ×3 (06:17→21:43)
[2017-08-12] MEDS: PRENATAL VITAMINS W/ FOLIC ACID TABLET (FP) PO SCH (10:27)
[2017-08-12] MEDS: HYDROCORTISONE 0.5% TOPICAL CREAM 30 GM TUBE TP SCH ×2 (10:27→21:43)
[2017-08-12] MEDS: SERTRALINE HCL 50 MG TABLET (FP) PO SCH (10:27)
[2017-08-12] MEDS: RANITIDINE HCL 150 MG TABLET (FP) PO SCH ×2 (10:27→21:43)
[2017-08-12] MEDS: NAPROXEN 500 MG TABLET (FP) PO SCH ×2 (10:27→21:42)
[2017-08-12] MEDS: PATIENT'S OWN MEDICATION (NON-FORMULARY) (Elbasvir/Grazoprevir [Zepatier 50-100 Mg Tablet] PO SCH (10:28)
[2017-08-12] MEDS: LIDOCAINE 5% TOPICAL PATCH TP SCH (10:28)
[2017-08-12] MEDS: NICOTINE 14 MG/24 HOURS TOPICAL PATCH TD SCH (10:28)
[2017-08-12] MEDS: AMITRIPTYLINE HCL 100 MG TABLET PO SCH (21:43)
[2017-08-12] MEDS: QUEtiapine FUMARATE 50 MG TABLET PO SCH (21:43)
[2017-08-12] MEDS: LIDOCAINE PATCH REMOVAL MC SCH (21:43)
[2017-08-12] MEDS: THIAMINE HCL 100 MG TABLET (FP) PO SCH (21:43)
[2017-08-12] MEDS: diphenhydrAMINE HCL 50 MG CAPSULE PO PRN (21:45)
[2017-08-13] MEDS: ACYCLOVIR 400 MG TABLET PO SCH ×3 (06:21→21:43)
[2017-08-13] MEDS: CYCLOBENZAPRINE HCL 5 MG TABLET PO SCH ×3 (06:21→21:43)
[2017-08-13] MEDS: GABAPENTIN 400 MG CAPSULE (FP) PO SCH ×3 (06:21→21:43)
[2017-08-13] MEDS: RANITIDINE HCL 150 MG TABLET (FP) PO SCH ×2 (10:18→21:43)
[2017-08-13] MEDS: PRENATAL VITAMINS W/ FOLIC ACID TABLET (FP) PO SCH (10:18)
[2017-08-13] MEDS: NAPROXEN 500 MG TABLET (FP) PO SCH ×2 (10:18→21:43)
[2017-08-13] MEDS: SERTRALINE HCL 50 MG TABLET (FP) PO SCH (10:18)
[2017-08-13] MEDS: NICOTINE 14 MG/24 HOURS TOPICAL PATCH TD SCH (10:19)
[2017-08-13] MEDS: HYDROCORTISONE 0.5% TOPICAL CREAM 30 GM TUBE TP SCH ×2 (10:19→21:44)
[2017-08-13] MEDS: LIDOCAINE 5% TOPICAL PATCH TP SCH (10:19)
[2017-08-13] MEDS: PATIENT'S OWN MEDICATION (NON-FORMULARY) (Elbasvir/Grazoprevir [Zepatier 50-100 Mg Tablet] PO SCH (10:21)
[2017-08-13] MEDS: MAG HYDROX/AL HYDROX/SIMETH 30 ML UNIT-DOSE CUP PO PRN (10:21)
[2017-08-13] MEDS: THIAMINE HCL 100 MG TABLET (FP) PO SCH (21:43)
[2017-08-13] MEDS: QUEtiapine FUMARATE 50 MG TABLET PO SCH (21:43)
[2017-08-13] MEDS: LIDOCAINE PATCH REMOVAL MC SCH (21:43)
[2017-08-13] MEDS: diphenhydrAMINE HCL 50 MG CAPSULE PO PRN (21:43)
[2017-08-13] MEDS: AMITRIPTYLINE HCL 100 MG TABLET PO SCH (21:43)
[2017-08-14] MEDS: CYCLOBENZAPRINE HCL 5 MG TABLET PO SCH ×3 (06:06→21:52)
[2017-08-14] MEDS: GABAPENTIN 400 MG CAPSULE (FP) PO SCH ×3 (06:06→21:52)
[2017-08-14] MEDS: ACYCLOVIR 400 MG TABLET PO SCH ×3 (06:06→21:52)
[2017-08-14] MEDS: NAPROXEN 500 MG TABLET (FP) PO SCH ×2 (09:02→21:51)
[2017-08-14] MEDS: SERTRALINE HCL 50 MG TABLET (FP) PO SCH (09:02)
[2017-08-14] MEDS: PRENATAL VITAMINS W/ FOLIC ACID TABLET (FP) PO SCH (09:02)
[2017-08-14] MEDS: HYDROCORTISONE 0.5% TOPICAL CREAM 30 GM TUBE TP SCH ×2 (09:03→23:00)
[2017-08-14] MEDS: NICOTINE 14 MG/24 HOURS TOPICAL PATCH TD SCH (09:03)
[2017-08-14] MEDS: PATIENT'S OWN MEDICATION (NON-FORMULARY) (Elbasvir/Grazoprevir [Zepatier 50-100 Mg Tablet] PO SCH (09:03)
[2017-08-14] MEDS: LIDOCAINE 5% TOPICAL PATCH TP SCH (09:03)
[2017-08-14] MEDS: RANITIDINE HCL 150 MG TABLET (FP) PO SCH ×2 (09:03→21:52)
[2017-08-14] MEDS: MAG HYDROX/AL HYDROX/SIMETH 30 ML UNIT-DOSE CUP PO PRN (20:34)
[2017-08-14] MEDS: diphenhydrAMINE HCL 50 MG CAPSULE PO PRN (21:52)
[2017-08-14] MEDS: THIAMINE HCL 100 MG TABLET (FP) PO SCH (21:52)
[2017-08-14] MEDS: QUEtiapine FUMARATE 50 MG TABLET PO SCH (21:54)
[2017-08-14] MEDS: LIDOCAINE PATCH REMOVAL MC SCH (23:00)
[2017-08-14] MEDS: AMITRIPTYLINE HCL 100 MG TABLET PO SCH (23:00)
[2017-08-15] MEDS: CYCLOBENZAPRINE HCL 5 MG TABLET PO SCH ×3 (06:35→21:39)
[2017-08-15] MEDS: GABAPENTIN 400 MG CAPSULE (FP) PO SCH ×3 (06:35→21:39)
[2017-08-15] MEDS: ACYCLOVIR 400 MG TABLET PO SCH ×3 (06:35→21:40)
[2017-08-15] MEDS: NAPROXEN 500 MG TABLET (FP) PO SCH ×2 (10:28→21:39)
[2017-08-15] MEDS: SERTRALINE HCL 50 MG TABLET (FP) PO SCH (10:28)
[2017-08-15] MEDS: RANITIDINE HCL 150 MG TABLET (FP) PO SCH ×2 (10:28→21:39)
[2017-08-15] MEDS: PRENATAL VITAMINS W/ FOLIC ACID TABLET (FP) PO SCH (10:28)
[2017-08-15] MEDS: PATIENT'S OWN MEDICATION (NON-FORMULARY) (Elbasvir/Grazoprevir [Zepatier 50-100 Mg Tablet] PO SCH (10:29)
[2017-08-15] MEDS: HYDROCORTISONE 0.5% TOPICAL CREAM 30 GM TUBE TP SCH ×2 (10:29→21:40)
[2017-08-15] MEDS: LIDOCAINE 5% TOPICAL PATCH TP SCH (10:29)
[2017-08-15] MEDS: NICOTINE 14 MG/24 HOURS TOPICAL PATCH TD SCH (10:29)
[2017-08-15] MEDS: MAG HYDROX/AL HYDROX/SIMETH 30 ML UNIT-DOSE CUP PO PRN (11:13)
[2017-08-15] MEDS: THIAMINE HCL 100 MG TABLET (FP) PO SCH (21:39)
[2017-08-15] MEDS: AMITRIPTYLINE HCL 100 MG TABLET PO SCH (21:39)
[2017-08-15] MEDS: QUEtiapine FUMARATE 50 MG TABLET PO SCH (21:39)
[2017-08-15] MEDS: diphenhydrAMINE HCL 50 MG CAPSULE PO PRN (21:40)
[2017-08-15] MEDS: LIDOCAINE PATCH REMOVAL MC SCH (21:40)
[2017-08-16] MEDS: ACYCLOVIR 400 MG TABLET PO SCH ×3 (06:58→21:39)
[2017-08-16] MEDS: GABAPENTIN 400 MG CAPSULE (FP) PO SCH ×3 (06:58→21:39)
[2017-08-16] MEDS: CYCLOBENZAPRINE HCL 5 MG TABLET PO SCH ×3 (06:58→21:40)
[2017-08-16] MEDS: RANITIDINE HCL 150 MG TABLET (FP) PO SCH ×2 (10:23→21:39)
[2017-08-16] MEDS: HYDROCORTISONE 0.5% TOPICAL CREAM 30 GM TUBE TP SCH ×2 (10:23→21:40)
[2017-08-16] MEDS: SERTRALINE HCL 50 MG TABLET (FP) PO SCH (10:23)
[2017-08-16] MEDS: LIDOCAINE 5% TOPICAL PATCH TP SCH (10:23)
[2017-08-16] MEDS: NAPROXEN 500 MG TABLET (FP) PO SCH ×2 (10:23→21:39)
[2017-08-16] MEDS: NICOTINE 14 MG/24 HOURS TOPICAL PATCH TD SCH (10:23)
[2017-08-16] MEDS: PRENATAL VITAMINS W/ FOLIC ACID TABLET (FP) PO SCH (10:23)
[2017-08-16] MEDS: PATIENT'S OWN MEDICATION (NON-FORMULARY) (Elbasvir/Grazoprevir [Zepatier 50-100 Mg Tablet] PO SCH (10:23)
[2017-08-16] MEDS: LIDOCAINE PATCH REMOVAL MC SCH (21:40)
[2017-08-16] MEDS: THIAMINE HCL 100 MG TABLET (FP) PO SCH (21:40)
[2017-08-16] MEDS: QUEtiapine FUMARATE 50 MG TABLET PO SCH (21:40)
[2017-08-16] MEDS: AMITRIPTYLINE HCL 100 MG TABLET PO SCH (21:40)
[2017-08-16] MEDS: diphenhydrAMINE HCL 50 MG CAPSULE PO PRN (21:41)
[2017-08-16] MEDS: MAG HYDROX/AL HYDROX/SIMETH 30 ML UNIT-DOSE CUP PO PRN (21:43)
[2017-08-17] MEDS: ACYCLOVIR 400 MG TABLET PO SCH ×3 (06:40→21:27)
[2017-08-17] MEDS: GABAPENTIN 400 MG CAPSULE (FP) PO SCH ×3 (06:40→21:27)
[2017-08-17] MEDS: CYCLOBENZAPRINE HCL 5 MG TABLET PO SCH ×3 (06:40→22:58)
[2017-08-17] MEDS: NAPROXEN 500 MG TABLET (FP) PO SCH ×2 (10:21→21:27)
[2017-08-17] MEDS: LIDOCAINE 5% TOPICAL PATCH TP SCH (10:21)
[2017-08-17] MEDS: SERTRALINE HCL 50 MG TABLET (FP) PO SCH (10:21)
[2017-08-17] MEDS: HYDROCORTISONE 0.5% TOPICAL CREAM 30 GM TUBE TP SCH ×2 (10:21→21:29)
[2017-08-17] MEDS: PRENATAL VITAMINS W/ FOLIC ACID TABLET (FP) PO SCH (10:21)
[2017-08-17] MEDS: RANITIDINE HCL 150 MG TABLET (FP) PO SCH ×2 (10:21→21:27)
[2017-08-17] MEDS: NICOTINE 14 MG/24 HOURS TOPICAL PATCH TD SCH (10:21)
[2017-08-17] MEDS: PATIENT'S OWN MEDICATION (NON-FORMULARY) (Elbasvir/Grazoprevir [Zepatier 50-100 Mg Tablet] PO SCH (10:22)
[2017-08-17] MEDS: MAG HYDROX/AL HYDROX/SIMETH 30 ML UNIT-DOSE CUP PO PRN (12:17)
[2017-08-17] MEDS: QUEtiapine FUMARATE 50 MG TABLET PO SCH (21:27)
[2017-08-17] MEDS: AMITRIPTYLINE HCL 100 MG TABLET PO SCH (21:28)
[2017-08-17] MEDS: LIDOCAINE PATCH REMOVAL MC SCH (21:29)
[2017-08-17] MEDS: diphenhydrAMINE HCL 50 MG CAPSULE PO PRN (21:29)
[2017-08-17] MEDS: THIAMINE HCL 100 MG TABLET (FP) PO SCH (21:29)
[2017-08-18] MEDS: GABAPENTIN 400 MG CAPSULE (FP) PO SCH ×3 (06:27→21:43)
[2017-08-18] MEDS: CYCLOBENZAPRINE HCL 5 MG TABLET PO SCH ×3 (06:27→21:44)
[2017-08-18] MEDS: ACYCLOVIR 400 MG TABLET PO SCH ×3 (06:27→21:44)
[2017-08-18] MEDS: RANITIDINE HCL 150 MG TABLET (FP) PO SCH ×2 (10:42→21:43)
[2017-08-18] MEDS: PATIENT'S OWN MEDICATION (NON-FORMULARY) (Elbasvir/Grazoprevir [Zepatier 50-100 Mg Tablet] PO SCH (10:42)
[2017-08-18] MEDS: NAPROXEN 500 MG TABLET (FP) PO SCH ×2 (10:42→21:43)
[2017-08-18] MEDS: MAG HYDROX/AL HYDROX/SIMETH 30 ML UNIT-DOSE CUP PO PRN (10:44)
[2017-08-18] MEDS: HYDROCORTISONE 0.5% TOPICAL CREAM 30 GM TUBE TP SCH ×2 (11:35→21:44)
[2017-08-18] MEDS: PRENATAL VITAMINS W/ FOLIC ACID TABLET (FP) PO SCH (11:36)
[2017-08-18] MEDS: NICOTINE 14 MG/24 HOURS TOPICAL PATCH TD SCH (11:36)
[2017-08-18] MEDS: SERTRALINE HCL 50 MG TABLET (FP) PO SCH (11:36)
[2017-08-18] MEDS: LIDOCAINE 5% TOPICAL PATCH TP SCH (11:36)
[2017-08-18] MEDS: THIAMINE HCL 100 MG TABLET (FP) PO SCH (21:43)
[2017-08-18] MEDS: AMITRIPTYLINE HCL 100 MG TABLET PO SCH (21:43)
[2017-08-18] MEDS: QUEtiapine FUMARATE 50 MG TABLET PO SCH (21:44)
[2017-08-18] MEDS: diphenhydrAMINE HCL 50 MG CAPSULE PO PRN (21:44)
[2017-08-18] MEDS: LIDOCAINE PATCH REMOVAL MC SCH (21:44)
[2017-08-19] MEDS: ACYCLOVIR 400 MG TABLET PO SCH ×3 (06:12→21:54)
[2017-08-19] MEDS: CYCLOBENZAPRINE HCL 5 MG TABLET PO SCH ×3 (06:12→21:54)
[2017-08-19] MEDS: GABAPENTIN 400 MG CAPSULE (FP) PO SCH ×3 (06:12→21:54)
[2017-08-19] MEDS: LIDOCAINE 5% TOPICAL PATCH TP SCH (10:52)
[2017-08-19] MEDS: RANITIDINE HCL 150 MG TABLET (FP) PO SCH ×2 (10:52→21:54)
[2017-08-19] MEDS: NICOTINE 14 MG/24 HOURS TOPICAL PATCH TD SCH (10:52)
[2017-08-19] MEDS: PRENATAL VITAMINS W/ FOLIC ACID TABLET (FP) PO SCH (10:52)
[2017-08-19] MEDS: NAPROXEN 500 MG TABLET (FP) PO SCH ×2 (10:52→21:54)
[2017-08-19] MEDS: SERTRALINE HCL 50 MG TABLET (FP) PO SCH (10:52)
[2017-08-19] MEDS: HYDROCORTISONE 0.5% TOPICAL CREAM 30 GM TUBE TP SCH ×2 (10:52→21:56)
[2017-08-19] MEDS: PATIENT'S OWN MEDICATION (NON-FORMULARY) (Elbasvir/Grazoprevir [Zepatier 50-100 Mg Tablet] PO SCH (10:53)
[2017-08-19] MEDS: QUEtiapine FUMARATE 50 MG TABLET PO SCH (21:54)
[2017-08-19] MEDS: THIAMINE HCL 100 MG TABLET (FP) PO SCH (21:54)
[2017-08-19] MEDS: AMITRIPTYLINE HCL 100 MG TABLET PO SCH (21:54)
[2017-08-19] MEDS: diphenhydrAMINE HCL 50 MG CAPSULE PO PRN (21:55)
[2017-08-19] MEDS: LIDOCAINE PATCH REMOVAL MC SCH (21:56)
[2017-08-20] MEDS: CYCLOBENZAPRINE HCL 5 MG TABLET PO SCH ×3 (06:15→21:36)
[2017-08-20] MEDS: GABAPENTIN 400 MG CAPSULE (FP) PO SCH ×3 (06:15→21:35)
[2017-08-20] MEDS: ACYCLOVIR 400 MG TABLET PO SCH ×3 (06:15→21:35)
[2017-08-20] MEDS: PRENATAL VITAMINS W/ FOLIC ACID TABLET (FP) PO SCH (10:35)
[2017-08-20] MEDS: RANITIDINE HCL 150 MG TABLET (FP) PO SCH ×2 (10:35→21:36)
[2017-08-20] MEDS: NAPROXEN 500 MG TABLET (FP) PO SCH ×2 (10:35→21:36)
[2017-08-20] MEDS: SERTRALINE HCL 50 MG TABLET (FP) PO SCH (10:35)
[2017-08-20] MEDS: LIDOCAINE 5% TOPICAL PATCH TP SCH (10:36)
[2017-08-20] MEDS: PATIENT'S OWN MEDICATION (NON-FORMULARY) (Elbasvir/Grazoprevir [Zepatier 50-100 Mg Tablet] PO SCH (10:36)
[2017-08-20] MEDS: NICOTINE 14 MG/24 HOURS TOPICAL PATCH TD SCH (10:36)
[2017-08-20] MEDS: HYDROCORTISONE 0.5% TOPICAL CREAM 30 GM TUBE TP SCH ×2 (10:36→21:36)
[2017-08-20] MEDS: QUEtiapine FUMARATE 50 MG TABLET PO SCH (21:35)
[2017-08-20] MEDS: AMITRIPTYLINE HCL 100 MG TABLET PO SCH (21:35)
[2017-08-20] MEDS: THIAMINE HCL 100 MG TABLET (FP) PO SCH (21:37)
[2017-08-20] MEDS: LIDOCAINE PATCH REMOVAL MC SCH (21:37)
[2017-08-20] MEDS: diphenhydrAMINE HCL 50 MG CAPSULE PO PRN (21:37)
[2017-08-21] MEDS: ACYCLOVIR 400 MG TABLET PO SCH (06:06)
[2017-08-21] MEDS: GABAPENTIN 400 MG CAPSULE (FP) PO SCH (06:07)
[2017-08-21] MEDS: CYCLOBENZAPRINE HCL 5 MG TABLET PO SCH (06:07)
[2017-08-21 06:42] VITALS: BP 144/97; PULSE 94; TEMP 97
[2017-08-21] MEDS: HYDROCORTISONE 0.5% TOPICAL CREAM 30 GM TUBE TP SCH (09:44)
[2017-08-21] MEDS: LIDOCAINE 5% TOPICAL PATCH TP SCH (09:44)
[2017-08-21] MEDS: RANITIDINE HCL 150 MG TABLET (FP) PO SCH (09:44)
[2017-08-21] MEDS: SERTRALINE HCL 50 MG TABLET (FP) PO SCH (09:44)
[2017-08-21] MEDS: NAPROXEN 500 MG TABLET (FP) PO SCH (09:44)
[2017-08-21] MEDS: PRENATAL VITAMINS W/ FOLIC ACID TABLET (FP) PO SCH (09:44)
[2017-08-21] MEDS: NICOTINE 14 MG/24 HOURS TOPICAL PATCH TD SCH (09:44)
[2017-08-21] MEDS: PATIENT'S OWN MEDICATION (NON-FORMULARY) (Elbasvir/Grazoprevir [Zepatier 50-100 Mg Tablet] PO SCH (09:45)
--- NOTE | 2017-08-21 09:56 | PN ---
Psychiatric Progress Note Vital Signs: Vital Signs Period Temp Pulse Resp BP Sys/Taylor Pulse Ox Last 24 Hr 97.0 F 94 18-18 144/97 Date of Session: 08/21/17 Chief Complaint:: discharge visit HPI: Patient is addressing alcohol, nicotine dependence comorbid PTSD, MDD. ROS: HTN, Asthma, Back-pain, Hep C, Sciatica medically managed. Current Medications: Active Medications Generic Name Dose Route Start Last Admin Trade Name Freq PRN Reason Stop Dose Admin Acetaminophen 650 mg 07/28/17 18:31 08/06/17 14:22 Tylenol - PO 650 mg Q4H PRN Administration PAIN Acyclovir 800 mg 08/08/17 14:00 08/21/17 06:06 Zovirax - PO 800 mg TID NEISHA Administration Al Hydroxide/Mg Hydroxide 30 ml 07/28/17 18:31 08/18/17 10:44 Mylanta Oral Suspension - PO 30 ml Q6H PRN Administration DYSPEPSIA Amitriptyline HCl 100 mg 08/11/17 22:00 08/20/17 21:35 Elavil - PO 100 mg HS NEISHA Administration Cyclobenzaprine HCl 5 mg 08/08/17 14:00 08/21/17 06:07 Cyclobenzaprine Hcl PO 5 mg TID NEISHA Administration Diphenhydramine HCl 50 mg 07/28/17 18:31 08/20/17 21:37 Benadryl - PO 50 mg HSMR1 PRN Administration INSOMNIA Eucalyptus/Menthol/Phenol/Sorbitol 1 each 07/28/17 18:31 Cepastat Lozenge - MM Q4H PRN SORE THROAT Gabapentin 1,200 mg 08/08/17 14:00 08/21/17 06:07 Neurontin - PO 1,200 mg TID NEISHA Administration Guaifenesin 10 ml 07/28/17 18:31 Robitussin Dm - PO Q6H PRN COUGH Hydrocortisone 1 applic 08/04/17 22:00 08/21/17 09:44 Hytone 0.5% Cream - TP Not Given BID NEISHA Hydrocortisone 1 applic 08/07/17 10:52 Hytone 0.5% Ointment - TP BID PRN MILD PAIN Hydroxyzine Pamoate 50 mg 07/28/17 18:31 08/07/17 21:59 Vistaril - PO 50 mg Q4H PRN Administration AGITATION Lidocaine 1 patch 08/01/17 12:45 08/21/17 09:44 Lidoderm Patch - TP Not Given DAILY NEISHA Loperamide HCl 4 mg 07/28/17 18:31 Imodium - PO Q6H PRN DIARRHEA Magnesium Citrate 300 ml 07/28/17 18:31 Citroma - PO Q48H PRN CONSTIPATION Magnesium Hydroxide 30 ml 07/28/17 18:31 Milk Of Magnesia - PO DAILY PRN CONSTIPATION Miscellaneous 1 each 08/01/17 22:00 08/20/17 21:37 Lidoderm Patch Removal MC Not Given DAILY@2200 NEISHA Naproxen 500 mg 08/07/17 11:00 08/21/17 09:44 Naprosyn - PO 500 mg BID NEISHA Administration Nicotine 14 mg 07/29/17 10:00 08/21/17 09:44 Nicoderm Patch - TD Not Given DAILY NEISHA Nicotine Polacrilex 2 mg 07/28/17 18:31 07/30/17 14:17 Nicorette Gum - BC 2 mg Q2H PRN Administration NICOTINE REPLACEMENT RX Non-Formulary Medication 1 each 07/29/17 10:00 08/21/17 09:45 Elbasvir/Grazoprevir [Zepatier 50-100 Mg Tablet] PO 1 each DAILY NEISHA Administration Multivit/Folic Acid/Iron 1 tab 07/29/17 10:00 08/21/17 09:44 Vitamins (Sjr) - PO 1 tab DAILY NEISHA Administration Pseudoephedrine/Triprolidine 1 combo 07/28/17 18:31 Actifed - PO TID PRN NASAL CONGESTION Quetiapine Fumarate 150 mg 08/07/17 22:00 08/20/17 21:35 Seroquel - PO 150 mg HS NEISHA Administration Ranitidine HCl 150 mg 07/28/17 22:00 08/21/17 09:44 Zantac - PO 150 mg BID NEISHA Administration Sertraline HCl 100 mg 08/01/17 11:09 08/21/17 09:44 Zoloft - PO 100 mg DAILY NEISHA Administration Simethicone 80 mg 08/07/17 10:54 Mylicon - PO Q4H PRN INDIGESTION Thiamine HCl 100 mg 07/28/17 22:00 08/20/17 21:37 Vitamin B1 - PO 100 mg HS NEISHA Administration Current Side Effect: No Lab tests ordered: No Lab tests reviewed: Yes Provider note:: Patient has completed today his treatment and met his goals, will continue to address his issues at [facility] program and will f/u with his psychiatrist at [facility]. He gained insights into his addiction, reports has been feeling much better, denies auditory hallucinations, reports he is more energetic, scripts provided, patient was encouraged to continue maintain abstinence and utilize all supports available to prevent relapses. Patient is stable for discharge today. Total face to face time:: 35 Mental Status Exam - Mental Status Exam Alert and Oriented to: Time, Place, Person Cognitive Function: Good Patient Appearance: Well Groomed Mood: Hopeful Affect: Appropriate Patient Behavior: Appropriate, Cooperative Speech Pattern: Clear, Appropriate Voice Loudness: Normal Thought Process: Intact Thought Disorder: Not Present Hallucinations: Denies Suicidal Ideation: Denies Homicidal Ideation: Denies Insight/Judgement: Fair Sleep: Fair Appetite: Good Muscle strength/Tone: Normal Psychiatric Treatment Plan - Problem List (1) Nicotine dependence Current Visit: Yes Qualifiers: Nicotine product type: cigarettes Substance use status: in withdrawal Qualified Code(s): F17.213 - Nicotine dependence, cigarettes, with withdrawal; F17.213 - Nicotine dependence, cigarettes, with withdrawal (2) GERD (gastroesophageal reflux disease) Current Visit: Yes Qualifiers: Esophagitis presence: without esophagitis Qualified Code(s): K21.9 - Gastro-esophageal reflux disease without esophagitis; K21.9 - Gastro- esophageal reflux disease without esophagitis; K21.9 - Gastro-esophageal reflux disease without esophagitis (3) Hepatitis C carrier Current Visit: Yes Comment: PROCESSING OF TREATMENT (4) Use of cane as ambulatory aid Current Visit: Yes (5) MDD (major depressive disorder) Current Visit: Yes (6) PTSD (post-traumatic stress disorder) Current Visit: Yes
== END 2017-08-21 10:00 | disposition home or self-care (01) | DRG 772 ==
LOC: YASAS 15:13 → Y5N 20:24
PROVIDERS: ADMIT Psychiatry & Neurology Psychiatry; ATTEND Psychiatry & Neurology Psychiatry
PROC: HZ42ZZZ Group Counseling for Substance Abuse Treatment, Cognitive-Behavioral (ICD-10-PCS; principal; 2017-07-28)
DX: F10.20 Alcohol dependence, uncomplicated (principal); F17.213 Nicotine dependence, cigarettes, with withdrawal; F34.1 Dysthymic disorder; F33.9 Major depressive disorder, recurrent, unspecified; F43.10 Post-traumatic stress disorder, unspecified; B02.9 Zoster without complications; K21.9 Gastro-esophageal reflux disease without esophagitis; B18.2 Chronic viral hepatitis C; R26.2 Difficulty in walking, not elsewhere classified; R07.9 Chest pain, unspecified; M54.5 Low back pain; G89.29 Other chronic pain; G62.9 Polyneuropathy, unspecified
CPT/HCPCS: 36415; 71020-TC; 80053; 81003; 85027; 86593; 90732; 93005; 93010; G0009

== ENCOUNTER 2018-08-20 14:13 | Inpatient (IN) | payer OTHER ==
--- NOTE | 2018-08-20 19:02 | HP ---
Admission ROS [facility] Chief Complaint: alcohol rehabilitation Allergies/Adverse Reactions: Allergies Allergy/AdvReac Type Severity Reaction Status Date / Time No Known Allergies Allergy Verified 03/22/15 17:15 History of Present Illness: 57 yo male with hx of nicotine and alcohol dependence is here for alcohol rehabilitation. Reports was admitted to [facility] 08/07/18 -08/20/18 [facility] detox and depression (suicide attempt), patient reports attempted to run into traffic, reports prior suicide attempt in 2010. Denies suicide / homicidal ideation. Denies visual / auditory hallucinations at this time. PMHX: HTN ( no med), asthma, chronic low back pain, depression, PTSD. Denies hx of seizures, reports hx of [facility] blackouts with last episode two months ago. Longest period of sobriety 12 years relapsed after 2010. Exam Limitations: No Limitations - Ebola screening Have you traveled outside of the country in the last 21 days: No (N) Have you had contact with anyone from an Ebola affected area: No Have you been sick,other than usual withdrawal symptoms: No Do you have a fever: No - Review of Systems Constitutional: Loss of Appetite, Unintentional Wgt. Loss EENT: reports: Other (left eye glaucoma) Respiratory: reports: No Symptoms reported Cardiac: reports: No Symptoms Reported GI: reports: Indigestion : reports: No Symptoms Reported Musculoskeletal: reports: Back Pain (with right sciatica, use cane to ambulate) Neuro: reports: No Symptoms reported Endocrine: reports: Increased Thirst Hematology: reports: No Symptoms Reported Psychiatric: reports: Orientated x3, Depressed Other Systems: Reviewed and Negative Patient History - Patient Medical History Hx Anemia: No Hx Asthma: Yes Hx Chronic Obstructive Pulmonary Disease (COPD): No Hx Cancer: No Hx Cardiac Disorders: Yes Hx Congestive Heart Failure: No Hx Hypertension: Yes Hx Hypercholesterolemia: No Hx Pacemaker: No HX Cerebrovascular Accident: No Hx Seizures: No Hx Dementia: No Hx Diabetes: No Hx Gastrointestinal Disorders: Yes Hx Liver Disease: No Hx Genitourinary Disorders: No Hx Sexually Transmitted Disorders: No Hx Renal Disease (ESRD): No Hx Thyroid Disease: No Hx Human Immunodeficiency Virus (HIV): No ( last tested seven months with NEG results ) Hx Hepatitis C: Yes (PROCESS OF TREATMENT) Hx Depression: Yes Hx Suicide Attempt: Yes Hx Bipolar Disorder: No Hx Schizophrenia: No - Patient Surgical History Past Surgical History: Yes Hx Neurologic Surgery: Yes (NEUROPATHY) Hx Cataract Extraction: No Hx Cardiac Surgery: No Hx Lung Surgery: No Hx Breast Surgery: No Hx Breast Biopsy: No Hx Abdominal Surgery: No Hx Appendectomy: No Hx Cholecystectomy: No Hx Genitourinary Surgery: No Hx Orthopedic Surgery: Yes (12/2016) Other Surgical History: s/p back surgery for herniated disc Anesthesia Reaction: No - PPD History Previous Implant?: No (hx PPD +) Documented Results: Positive w/o proof PPD to be Administered?: No - Smoking Cessation Smoking history: Current every day smoker Have you smoked in the past 12 months: Yes Aproximately how many cigarettes per day: 10 Cigars Per Day: 0 Hx Chewing Tobacco Use: No Initiated information on smoking cessation: Yes 'Breaking Loose' booklet given: 08/20/18 - Substance & Tx. History Hx Alcohol Use: Yes Hx Substance Use: Yes Substance Use Type: Alcohol Hx Substance Use Treatment: Yes ([facility] 08/07/18 -08/20/18 [facility] detox) - Substances Abused Alcohol Route: Oral Frequency: Daily Amount used: 2 pints vodka Age of first use: 17 Date of Last Use: 08/06/18 Family Disease History - Family Disease History Family Disease History: Heart Disease: Mother, [place]: Father (, liver cirrhosis ), Other: Father Admission Physical Exam S - Vital Signs Vital Signs: Vital Signs - 24 hr 08/20/18 14:41 Temperature 97.4 F L Pulse Rate 109 H Respiratory 17 Rate Blood Pressure 143/68 - Physical General Appearance: Yes: Appropriately Dressed, Obese, Sweating, Anxious HEENTM: Yes: EOMI, Hearing grossly Normal, Normal ENT Inspection, Normocephalic , Normal Voice, SIENA, Pharynx Normal, Tm's normal Respiratory: Yes: Chest Non-Tender, Lungs Clear, Normal Breath Sounds, No Respiratory Distress, No Accessory Muscle Use Neck: Yes: Within Normal Limits Breast: Yes: Breast Exam Deferred Cardiology: Yes: Regular Rhythm, Regular Rate Abdominal: Yes: Normal Bowel Sounds, Non Tender, Soft, Protuberent Genitourinary: Yes: Within Normal Limits Back: Yes: Normal Inspection Musculoskeletal: Yes: full range of Motion, Gait Steady, Pelvis Stable, Back pain, Other (cane for ambulation) Extremities: Yes: Normal Capillary Refill, Normal Inspection, Normal Range of Motion, Non-Tender Neurological: Yes: calker II-XII NML intact, Fully Oriented, Alert, Motor Strength 5/5, Depressed Affect Integumentary: Yes: Normal Color, Warm, Moist Lymphatic: Yes: Within Normal Limits - Diagnostic (1) Nicotine dependence Current Visit: Yes Status: Acute Qualifiers: Nicotine product type: cigarettes Substance use status: in withdrawal Qualified Code(s): F17.213 - Nicotine dependence, cigarettes, with withdrawal (2) Alcohol dependence Current Visit: Yes Status: Chronic Qualifiers: Substance use status: uncomplicated Qualified Code(s): F10.20 - Alcohol dependence, uncomplicated (3) GERD (gastroesophageal reflux disease) Current Visit: Yes Status: Chronic Qualifiers: Esophagitis presence: without esophagitis Qualified Code(s): K21.9 - Gastro -esophageal reflux disease without esophagitis (4) Low back pain Current Visit: Yes Status: Chronic Qualifiers: Chronicity: chronic Back pain laterality: bilateral Sciatica presence: with sciatica Sciatica laterality: bilateral sciatica Qualified Code(s): M54.42 - Lumbago with sciatica, left side (5) Use of cane as ambulatory aid Current Visit: Yes Status: Chronic (6) Psychiatric disorder Current Visit: Yes Status: Suspected [facility] Breath Alcohol Content Breath Alcohol Content: 0 Urine Drug Screen - Results Drug Screen Negative: Yes Inpatient Rehab Admission - Initial Determination Are CD services needed?: Yes Free of communicable disease: Yes Not in need of hospitalization: Yes - Rehab Admission Criteria Previous failed treatment: Yes Poor recovery environment: Yes Comorbidities: Yes Lacks judgement: Yes Patient is meeting Inpatient Rehab admission criteria:: Yes
[2018-08-20] MEDS ORDERED: ALBUTEROL SO4 0.083% IH SOL 2.5 MG/3 ML VIAL.NEB. NEB PRN (19:15)
[2018-08-20] MEDS ORDERED: ACETAMINOPHEN 325 MG TABLET (FP) PO PRN (19:18)
[2018-08-20] MEDS ORDERED: P-EPHED 60MG/TRIPROLIDI 2.5MG TABLET PO PRN (19:18)
[2018-08-20] MEDS ORDERED: IBUPROFEN 400 MG TABLET (FP) PO PRN (19:18)
[2018-08-20] MEDS ORDERED: MAGNESIUM HYDROX 2400MG/30ML ORAL SUSPENSION 30 ML CUP PO PRN (19:18)
[2018-08-20] MEDS ORDERED: LOPERAMIDE HCL 2 MG CAPSULE PO PRN (19:18)
[2018-08-20] MEDS ORDERED: MENTHOL/PHENOL 1 EACH UD MM PRN (19:18)
[2018-08-20] MEDS ORDERED: NICOTINE POLACRILEX 2 MG GUM BUC PRN (19:18)
[2018-08-20] MEDS ORDERED: guaiFENesin/D-METHORPHAN HB 10 ML UNIT-DOSE CUPS PO PRN (19:18)
[2018-08-20] MEDS ORDERED: MAG HYDROX/AL HYDROX/SIMETH 30 ML UNIT-DOSE CUP PO PRN (19:18)
[2018-08-20] MEDS ORDERED: MAGNESIUM CITRATE 300 ML BOTTLE PO PRN (19:18)
[2018-08-20] MEDS: hydrOXYzine PAMOATE 50 MG CAPSULE (FP) PO PRN (22:52)
[2018-08-20] MEDS: MELATONIN 5 MG TABLETS PO PRN (22:52)
[2018-08-20] MEDS: THIAMINE HCL 100 MG TABLET (FP) PO SCH (22:52)
[2018-08-20] MEDS: LIDOCAINE PATCH REMOVAL MC SCH (22:56)
[2018-08-20] MEDS: CYCLOBENZAPRINE HCL 10 MG TABLET (FP) PO SCH (22:57)
[2018-08-21 01:06] LABS: URINE APPEARANCE CLOUDY; URINE BILIRUBIN NEGATIVE (<2.0 mg/dL); URINE COLOR YELLOW; URINE GLUCOSE (UA) NEGATIVE (NEGATIVE); URINE KETONE 1+ (NEGATIVE); URINE LEUK ESTERASE NEGATIVE (NEGATIVE); URINE NITRITE NEGATIVE (NEGATIVE); URINE PROTEIN NEGATIVE (NEGATIVE); URINE UROBILINOGEN NEGATIVE mg/dL (0.2-1.0)
--- NOTE | 2018-08-21 06:24 | HP ---
Psychiatrist Admission - Data Date of interview: 08/21/18 Admission source: [facility] psychiatric inpatient Identifying data: This is the second [facility] admission for this 57 years old male, father of 4 children, unemployed SSD, domiciled Medical History: Significant for bronchial asthma, hypertension, GERD, neuropathy, chronic low back pain/sciatica, history of treatment for hepatitis C and neurosurgery for herniated disc. Smokes cigarettes 10 a day. Psychiatric History: Mr Holt has had 2 previous admissions in this facility in March 2015 & July 2017. 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 He reports witnessing people jumping from the building, saw bodies, states he sees all this in his dreams. Reports that he started to see a psychiatrist in 2001 and has had 4 previous psychiatric hospitalizations for depression and suicidal ideations at [facility] and [facility] and most recently from 08/05/18 to 08/20/18 at [facility] for depression and suicidal attempt by running into traffic. He was discharged on Cymbalta 20 mg po BID, Zyprexa 20 mg po HS, trazadone 150 mg po HS and referred to this facility for inpatient rehab. Told senior writer that he currently receives psychiatric outpatient services with Dr Vergara, staff psychiatrist and Zhane, clinical therapist at [facility] which is a [facility]. Told senior writer that he has not seen both his psychiatrist and therapist for over a month because of his addiction. Reports multiple suicidal attempts by jumping 3rd floor window and running into traffic. Most recent attempt was on August 05, 2018 by running into traffic leading to his admission to [facility]. At present, reports feeling anxious and sleeping poorly. Physical/Sexual Abuse/Trauma History: Denies history of emotional, physical or sexual abuse as well as DV relationship. No service Additional Comment: Denies criminal history Vital Signs: Vital Signs - 24 hr 08/20/18 08/20/18 08/21/18 14:41 21:20 00:30 Temperature 97.4 F L 98.1 F Pulse Rate 109 H 92 H Respiratory 17 20 18 Rate Blood Pressure 143/68 141/102 H 08/21/18 03:30 Temperature Pulse Rate Respiratory 18 Rate Blood Pressure Allergies/Adverse Reactions: Allergies Allergy/AdvReac Type Severity Reaction Status Date / Time No Known Allergies Allergy Verified 03/22/15 17:15 Date of last physical exam: 08/20/18 Concur with the findings of this exam: Yes - Substance Abuse/Tx History Hx Alcohol Use: Yes Hx Substance Use: No Substance Use Type: Alcohol (Started drinking alcohol at age 17, consumes 2 pints of vodka daily. Last drank on 08/06/18) Hx Substance Use Treatment: Yes (7 previous inpt detox & 5 inpt rehab admissions ) Mental Status Exam - Mental Status Exam Alert and Oriented to: Time, Place, Person Cognitive Function: Fair Patient Appearance: Well Groomed Mood: Anxious Affect: Appropriate Patient Behavior: Cooperative Speech Pattern: Clear Voice Loudness: Normal Thought Process: Intact, Goal Oriented Thought Disorder: Not Present Hallucinations: Denies Homicidal Ideation: Denies Insight/Judgement: Fair Sleep: Poorly Appetite: Poor Muscle strength/Tone: Normal Gait/Station: Other (Uses a cane as ambulatory aid) Psychiatric Findings - Problem List ([place] 1, 2,3) (1) Alcohol dependence Current Visit: Yes Status: Acute Qualifiers: Substance use status: uncomplicated Qualified Code(s): F10.20 - Alcohol dependence, uncomplicated (2) Nicotine dependence Current Visit: Yes Status: Chronic Qualifiers: Nicotine product type: cigarettes Substance use status: in withdrawal Qualified Code(s): F17.213 - Nicotine dependence, cigarettes, with withdrawal (3) MDD (major depressive disorder) Current Visit: No Status: Chronic (4) PTSD (post-traumatic stress disorder) Current Visit: No Status: Chronic (5) Alcohol-induced anxiety disorder Current Visit: Yes Status: Acute (6) Alcohol-induced sleep disorder Current Visit: Yes Status: Acute (7) GERD (gastroesophageal reflux disease) Current Visit: Yes Status: Chronic Qualifiers: Esophagitis presence: without esophagitis Qualified Code(s): K21.9 - Gastro -esophageal reflux disease without esophagitis (8) Low back pain Current Visit: Yes Status: Chronic Qualifiers: Chronicity: chronic Back pain laterality: bilateral Sciatica presence: with sciatica Sciatica laterality: bilateral sciatica Qualified Code(s): M54.42 - Lumbago with sciatica, left side; M54.41 - Lumbago with sciatica, right side; G89.29 - Other chronic pain (9) Hepatitis C carrier Current Visit: No Status: Suspected Comment: PROCESSING OF TREATMENT (10) Neuropathy Current Visit: No Status: Chronic (11) Bronchial asthma Current Visit: Yes Status: Chronic (12) HTN (hypertension) Current Visit: Yes Status: Chronic (13) PPD positive Current Visit: Yes Status: Chronic - Initial Treatment Plan Initial Treatment Plan: 1) Continue Cymbalta 40 mg po daily, Zyprexa 20 mg po HS and Trazadone 150 mg po HS. 2) Monitor progress
[2018-08-21] MEDS: CYCLOBENZAPRINE HCL 10 MG TABLET (FP) PO SCH ×3 (06:35→21:33)
[2018-08-21] MEDS: PRENATAL VITAMINS W/ FOLIC ACID TABLET (FP) PO SCH (10:06)
[2018-08-21] MEDS: LIDOCAINE 5% TOPICAL PATCH TP SCH (10:08)
[2018-08-21] MEDS: NICOTINE 14 MG/24 HOURS TOPICAL PATCH TD SCH (10:08)
--- NOTE | 2018-08-21 10:14 | EKG ---
Test Reason : Blood Pressure : / mmHG Vent. Rate : 095 BPM Atrial Rate : 095 BPM P-R Int : 148 ms QRS Dur : 072 ms QT Int : 348 ms P-R-T Axes : 067 026 029 degrees QTc Int : 437 ms POOR DATA QUALITY, INTERPRETATION MAY BE ADVERSELY AFFECTED NORMAL SINUS RHYTHM NORMAL ECG WHEN COMPARED WITH ECG OF 05-AUG-2017 17:13, NO SIGNIFICANT CHANGE WAS FOUND Confirmed by KRISTINE RIDLEY MD ([id number]) on 08/21/2018 10:13:50 AM Referred By: Confirmed By:KRISTINE RIDLEY MD
[2018-08-21] MEDS ORDERED: SERTRALINE HCL 50 MG TABLET (FP) PO SCH (10:30)
[2018-08-21] MEDS: DULoxetine HCL 20 MG CAPSULE.DR (FP) PO SCH (14:28)
[2018-08-21 14:43] LABS: HEMATOCRIT 40.7 % (35.4-49); HEMOGLOBIN 13.1 GM/dL (11.7-16.9); MCH 27.9 pg (25.7-33.7); MCHC 32.3 g/dl (32.0-35.9); MEAN CELL VOLUME 86.4 fl (80-96); MEAN PLT VOLUME 8.5 fl (7.5-11.1); PLATELET COUNT 287 K/MM3 (134-434); RBC 4.71 M/mm3 (4.00-5.60); RDW 14.7 % (11.9-15.9); WHITE BLOOD COUNT 6.9 K/mm3 (4.0-10.0)
[2018-08-21 15:03] LABS: ALBUMIN 3.6 g/dl (3.4-5.0); ALK PHOS 61 U/L (45-117); ANION GAP 4 MMOL/L (8-16); BILIRUBIN,TOTAL 0.2 mg/dL (0.2-1); BLOOD UREA NITROGEN 16 mg/dL (7-18); CALCIUM 9.1 mg/dL (8.5-10.1); CHLORIDE 103 mmol/L (98-107); CO2 28 mmol/L (21-32); CREATININE 0.9 mg/dL (0.55-1.3); GLUCOSE,RANDOM 118 mg/dL (74-106); POTASSIUM 3.9 mmol/L (3.5-5.1); SGOT/AST 20 U/L (15-37); SGPT/ALT 30 U/L (13-61); SODIUM 135 mmol/L (136-145); TOT PROT 6.7 g/dl (6.4-8.2)
[2018-08-21] MEDS: traZODone HCL 50 MG TABLET (FP) PO SCH (21:33)
[2018-08-21] MEDS: ATORVASTATIN CA 20 MG TABLET (FP) PO SCH (21:33)
[2018-08-21] MEDS: LIDOCAINE PATCH REMOVAL MC SCH (21:33)
[2018-08-21] MEDS: THIAMINE HCL 100 MG TABLET (FP) PO SCH (21:33)
[2018-08-21] MEDS: OLANZapine 10 MG TABLET PO SCH (21:33)
[2018-08-22] MEDS: CYCLOBENZAPRINE HCL 10 MG TABLET (FP) PO SCH ×3 (06:45→21:30)
[2018-08-22] MEDS: PANTOPRAZOLE 20 MG TABLET (FP) PO SCH ×2 (06:45→17:19)
[2018-08-22] MEDS: DULoxetine HCL 20 MG CAPSULE.DR (FP) PO SCH (10:12)
[2018-08-22] MEDS: PRENATAL VITAMINS W/ FOLIC ACID TABLET (FP) PO SCH (10:13)
[2018-08-22] MEDS: NICOTINE 14 MG/24 HOURS TOPICAL PATCH TD SCH (10:13)
[2018-08-22] MEDS: LIDOCAINE 5% TOPICAL PATCH TP SCH (10:13)
[2018-08-22] MEDS: traZODone HCL 50 MG TABLET (FP) PO SCH (21:30)
[2018-08-22] MEDS: ATORVASTATIN CA 20 MG TABLET (FP) PO SCH (21:30)
[2018-08-22] MEDS: THIAMINE HCL 100 MG TABLET (FP) PO SCH (21:30)
[2018-08-22] MEDS: OLANZapine 10 MG TABLET PO SCH (21:30)
[2018-08-22] MEDS: LIDOCAINE PATCH REMOVAL MC SCH (21:31)
[2018-08-22] MEDS ORDERED: MECLIZINE HCL 12.5 MG TABLET PO PRN (21:38)
[2018-08-23] MEDS: CYCLOBENZAPRINE HCL 10 MG TABLET (FP) PO SCH ×2 (06:37→14:56)
[2018-08-23] MEDS: PANTOPRAZOLE 20 MG TABLET (FP) PO SCH ×2 (06:37→17:03)
[2018-08-23] MEDS: PRENATAL VITAMINS W/ FOLIC ACID TABLET (FP) PO SCH (10:27)
[2018-08-23] MEDS: DULoxetine HCL 20 MG CAPSULE.DR (FP) PO SCH (10:27)
[2018-08-23] MEDS: NICOTINE 14 MG/24 HOURS TOPICAL PATCH TD SCH (10:27)
[2018-08-23] MEDS: LIDOCAINE 5% TOPICAL PATCH TP SCH (10:27)
[2018-08-23] MEDS: THIAMINE HCL 100 MG TABLET (FP) PO SCH (21:17)
[2018-08-23] MEDS: LIDOCAINE PATCH REMOVAL MC SCH (21:18)
[2018-08-23] MEDS: traZODone HCL 50 MG TABLET (FP) PO SCH (21:18)
[2018-08-23] MEDS: OLANZapine 10 MG TABLET PO SCH (21:18)
[2018-08-23] MEDS: CYCLOBENZAPRINE HCL 5 MG TABLET PO SCH (21:18)
[2018-08-23] MEDS: ATORVASTATIN CA 20 MG TABLET (FP) PO SCH (21:18)
[2018-08-24] MEDS: CYCLOBENZAPRINE HCL 5 MG TABLET PO SCH ×3 (06:38→21:30)
[2018-08-24] MEDS: PANTOPRAZOLE 20 MG TABLET (FP) PO SCH ×2 (06:38→17:03)
[2018-08-24] MEDS: PRENATAL VITAMINS W/ FOLIC ACID TABLET (FP) PO SCH (10:37)
[2018-08-24] MEDS: NICOTINE 14 MG/24 HOURS TOPICAL PATCH TD SCH (10:38)
[2018-08-24] MEDS: DULoxetine HCL 20 MG CAPSULE.DR (FP) PO SCH (10:38)
[2018-08-24] MEDS: LIDOCAINE 5% TOPICAL PATCH TP SCH (10:38)
[2018-08-24] MEDS: traZODone HCL 50 MG TABLET (FP) PO SCH (21:30)
[2018-08-24] MEDS: ATORVASTATIN CA 20 MG TABLET (FP) PO SCH (21:30)
[2018-08-24] MEDS: THIAMINE HCL 100 MG TABLET (FP) PO SCH (21:30)
[2018-08-24] MEDS: OLANZapine 10 MG TABLET PO SCH (21:31)
[2018-08-24] MEDS: LIDOCAINE PATCH REMOVAL MC SCH (21:32)
[2018-08-25] MEDS: CYCLOBENZAPRINE HCL 5 MG TABLET PO SCH ×3 (06:34→21:35)
[2018-08-25] MEDS: PANTOPRAZOLE 20 MG TABLET (FP) PO SCH ×2 (06:34→17:04)
[2018-08-25] MEDS: LIDOCAINE 5% TOPICAL PATCH TP SCH (10:12)
[2018-08-25] MEDS: NICOTINE 14 MG/24 HOURS TOPICAL PATCH TD SCH (10:13)
[2018-08-25] MEDS: PRENATAL VITAMINS W/ FOLIC ACID TABLET (FP) PO SCH (10:13)
[2018-08-25] MEDS: DULoxetine HCL 20 MG CAPSULE.DR (FP) PO SCH (10:27)
[2018-08-25] MEDS: traZODone HCL 50 MG TABLET (FP) PO SCH (21:35)
[2018-08-25] MEDS: OLANZapine 10 MG TABLET PO SCH (21:35)
[2018-08-25] MEDS: THIAMINE HCL 100 MG TABLET (FP) PO SCH (21:35)
[2018-08-25] MEDS: LIDOCAINE PATCH REMOVAL MC SCH (21:36)
[2018-08-25] MEDS: ATORVASTATIN CA 20 MG TABLET (FP) PO SCH (21:38)
[2018-08-26] MEDS: PANTOPRAZOLE 20 MG TABLET (FP) PO SCH ×2 (06:18→17:07)
[2018-08-26] MEDS: CYCLOBENZAPRINE HCL 5 MG TABLET PO SCH ×3 (06:18→21:30)
[2018-08-26] MEDS ORDERED: COLLOIDAL OATMEAL 1 BAR EACH TP PRN (09:32)
[2018-08-26] MEDS: LIDOCAINE 5% TOPICAL PATCH TP SCH (10:07)
[2018-08-26] MEDS: NICOTINE 14 MG/24 HOURS TOPICAL PATCH TD SCH (10:07)
[2018-08-26] MEDS: DULoxetine HCL 20 MG CAPSULE.DR (FP) PO SCH (10:07)
[2018-08-26] MEDS: PRENATAL VITAMINS W/ FOLIC ACID TABLET (FP) PO SCH (10:07)
[2018-08-26] MEDS: MELATONIN 5 MG TABLETS PO PRN (21:30)
[2018-08-26] MEDS: THIAMINE HCL 100 MG TABLET (FP) PO SCH (21:30)
[2018-08-26] MEDS: OLANZapine 10 MG TABLET PO SCH (21:30)
[2018-08-26] MEDS: ATORVASTATIN CA 20 MG TABLET (FP) PO SCH (21:30)
[2018-08-26] MEDS: traZODone HCL 50 MG TABLET (FP) PO SCH (21:30)
[2018-08-26] MEDS: hydrOXYzine PAMOATE 50 MG CAPSULE (FP) PO PRN (21:30)
[2018-08-26] MEDS: LIDOCAINE PATCH REMOVAL MC SCH (22:02)
[2018-08-27] MEDS: CYCLOBENZAPRINE HCL 5 MG TABLET PO SCH ×3 (06:27→21:33)
[2018-08-27] MEDS: PANTOPRAZOLE 20 MG TABLET (FP) PO SCH ×2 (06:27→15:42)
[2018-08-27] MEDS: DULoxetine HCL 20 MG CAPSULE.DR (FP) PO SCH (10:14)
[2018-08-27] MEDS: LIDOCAINE 5% TOPICAL PATCH TP SCH (10:14)
[2018-08-27] MEDS: NICOTINE 14 MG/24 HOURS TOPICAL PATCH TD SCH (10:14)
[2018-08-27] MEDS: PRENATAL VITAMINS W/ FOLIC ACID TABLET (FP) PO SCH (10:14)
[2018-08-27] MEDS: ATORVASTATIN CA 20 MG TABLET (FP) PO SCH (21:33)
[2018-08-27] MEDS: traZODone HCL 50 MG TABLET (FP) PO SCH (21:33)
[2018-08-27] MEDS: OLANZapine 10 MG TABLET PO SCH (21:33)
[2018-08-27] MEDS: THIAMINE HCL 100 MG TABLET (FP) PO SCH (21:33)
[2018-08-27] MEDS: LIDOCAINE PATCH REMOVAL MC SCH (21:34)
[2018-08-28] MEDS: CYCLOBENZAPRINE HCL 5 MG TABLET PO SCH ×3 (06:08→21:26)
[2018-08-28] MEDS: PANTOPRAZOLE 20 MG TABLET (FP) PO SCH ×2 (06:08→16:46)
[2018-08-28] MEDS: DULoxetine HCL 20 MG CAPSULE.DR (FP) PO SCH (09:54)
[2018-08-28] MEDS: PRENATAL VITAMINS W/ FOLIC ACID TABLET (FP) PO SCH (09:54)
[2018-08-28] MEDS: LIDOCAINE 5% TOPICAL PATCH TP SCH (09:56)
[2018-08-28] MEDS: NICOTINE 14 MG/24 HOURS TOPICAL PATCH TD SCH (10:15)
[2018-08-28] MEDS: ATORVASTATIN CA 20 MG TABLET (FP) PO SCH (21:26)
[2018-08-28] MEDS: traZODone HCL 50 MG TABLET (FP) PO SCH (21:26)
[2018-08-28] MEDS: OLANZapine 10 MG TABLET PO SCH (21:26)
[2018-08-28] MEDS: THIAMINE HCL 100 MG TABLET (FP) PO SCH (21:26)
[2018-08-28] MEDS: LIDOCAINE PATCH REMOVAL MC SCH (21:27)
[2018-08-29] MEDS: CYCLOBENZAPRINE HCL 5 MG TABLET PO SCH ×3 (06:54→21:36)
[2018-08-29] MEDS: PANTOPRAZOLE 20 MG TABLET (FP) PO SCH ×2 (06:54→17:04)
[2018-08-29] MEDS: DULoxetine HCL 20 MG CAPSULE.DR (FP) PO SCH (10:15)
[2018-08-29] MEDS: NICOTINE 14 MG/24 HOURS TOPICAL PATCH TD SCH (10:15)
[2018-08-29] MEDS: LIDOCAINE 5% TOPICAL PATCH TP SCH (10:15)
[2018-08-29] MEDS: PRENATAL VITAMINS W/ FOLIC ACID TABLET (FP) PO SCH (10:15)
[2018-08-29] MEDS: GABAPENTIN 300 MG CAPSULE (FP) PO SCH ×2 (14:33→21:36)
[2018-08-29] MEDS: traZODone HCL 50 MG TABLET (FP) PO SCH (21:36)
[2018-08-29] MEDS: THIAMINE HCL 100 MG TABLET (FP) PO SCH (21:36)
[2018-08-29] MEDS: ATORVASTATIN CA 20 MG TABLET (FP) PO SCH (21:36)
[2018-08-29] MEDS: OLANZapine 10 MG TABLET PO SCH (21:36)
[2018-08-29] MEDS: LIDOCAINE PATCH REMOVAL MC SCH (21:37)
[2018-08-30] MEDS: PANTOPRAZOLE 20 MG TABLET (FP) PO SCH ×2 (06:06→16:51)
[2018-08-30] MEDS: CYCLOBENZAPRINE HCL 5 MG TABLET PO SCH ×3 (06:06→21:30)
[2018-08-30] MEDS: GABAPENTIN 300 MG CAPSULE (FP) PO SCH ×3 (06:06→21:30)
[2018-08-30] MEDS: DULoxetine HCL 20 MG CAPSULE.DR (FP) PO SCH (09:59)
[2018-08-30] MEDS: PRENATAL VITAMINS W/ FOLIC ACID TABLET (FP) PO SCH (09:59)
[2018-08-30] MEDS: LIDOCAINE 5% TOPICAL PATCH TP SCH (10:00)
[2018-08-30] MEDS: NICOTINE 14 MG/24 HOURS TOPICAL PATCH TD SCH (10:00)
[2018-08-30] MEDS: traZODone HCL 50 MG TABLET (FP) PO SCH (21:29)
[2018-08-30] MEDS: THIAMINE HCL 100 MG TABLET (FP) PO SCH (21:29)
[2018-08-30] MEDS: LIDOCAINE PATCH REMOVAL MC SCH (21:30)
[2018-08-30] MEDS: ATORVASTATIN CA 20 MG TABLET (FP) PO SCH (21:30)
[2018-08-30] MEDS: OLANZapine 10 MG TABLET PO SCH (21:31)
[2018-08-31] MEDS: PANTOPRAZOLE 20 MG TABLET (FP) PO SCH ×2 (06:25→17:30)
[2018-08-31] MEDS: GABAPENTIN 300 MG CAPSULE (FP) PO SCH ×3 (06:25→21:31)
[2018-08-31] MEDS: CYCLOBENZAPRINE HCL 5 MG TABLET PO SCH ×3 (06:25→21:31)
[2018-08-31] MEDS: LIDOCAINE 5% TOPICAL PATCH TP SCH (10:00)
[2018-08-31] MEDS: PRENATAL VITAMINS W/ FOLIC ACID TABLET (FP) PO SCH (10:00)
[2018-08-31] MEDS: DULoxetine HCL 20 MG CAPSULE.DR (FP) PO SCH (10:00)
[2018-08-31] MEDS: NICOTINE 14 MG/24 HOURS TOPICAL PATCH TD SCH (10:00)
[2018-08-31] MEDS: traZODone HCL 50 MG TABLET (FP) PO SCH (21:31)
[2018-08-31] MEDS: OLANZapine 10 MG TABLET PO SCH (21:31)
[2018-08-31] MEDS: ATORVASTATIN CA 20 MG TABLET (FP) PO SCH (21:31)
[2018-08-31] MEDS: LIDOCAINE PATCH REMOVAL MC SCH (21:32)
[2018-08-31] MEDS: THIAMINE HCL 100 MG TABLET (FP) PO SCH (21:33)
[2018-09-01] MEDS: PANTOPRAZOLE 20 MG TABLET (FP) PO SCH ×2 (06:11→16:40)
[2018-09-01] MEDS: CYCLOBENZAPRINE HCL 5 MG TABLET PO SCH ×3 (06:11→21:26)
[2018-09-01] MEDS: GABAPENTIN 300 MG CAPSULE (FP) PO SCH ×3 (06:11→21:26)
[2018-09-01] MEDS: DULoxetine HCL 20 MG CAPSULE.DR (FP) PO SCH (09:59)
[2018-09-01] MEDS: PRENATAL VITAMINS W/ FOLIC ACID TABLET (FP) PO SCH (09:59)
[2018-09-01] MEDS: NICOTINE 14 MG/24 HOURS TOPICAL PATCH TD SCH (09:59)
[2018-09-01] MEDS: LIDOCAINE 5% TOPICAL PATCH TP SCH (10:00)
[2018-09-01] MEDS: traZODone HCL 50 MG TABLET (FP) PO SCH (21:26)
[2018-09-01] MEDS: THIAMINE HCL 100 MG TABLET (FP) PO SCH (21:26)
[2018-09-01] MEDS: ATORVASTATIN CA 20 MG TABLET (FP) PO SCH (21:26)
[2018-09-01] MEDS: OLANZapine 10 MG TABLET PO SCH (21:26)
[2018-09-01] MEDS: LIDOCAINE PATCH REMOVAL MC SCH (21:27)
[2018-09-02] MEDS: GABAPENTIN 300 MG CAPSULE (FP) PO SCH ×3 (06:18→21:41)
[2018-09-02] MEDS: CYCLOBENZAPRINE HCL 5 MG TABLET PO SCH ×3 (06:18→21:41)
[2018-09-02] MEDS: PANTOPRAZOLE 20 MG TABLET (FP) PO SCH ×2 (06:18→16:53)
[2018-09-02] MEDS: DULoxetine HCL 20 MG CAPSULE.DR (FP) PO SCH (10:23)
[2018-09-02] MEDS: PRENATAL VITAMINS W/ FOLIC ACID TABLET (FP) PO SCH (10:23)
[2018-09-02] MEDS: NICOTINE 14 MG/24 HOURS TOPICAL PATCH TD SCH (10:24)
[2018-09-02] MEDS: LIDOCAINE 5% TOPICAL PATCH TP SCH (10:24)
[2018-09-02] MEDS: ATORVASTATIN CA 20 MG TABLET (FP) PO SCH (21:41)
[2018-09-02] MEDS: THIAMINE HCL 100 MG TABLET (FP) PO SCH (21:41)
[2018-09-02] MEDS: OLANZapine 10 MG TABLET PO SCH (21:41)
[2018-09-02] MEDS: traZODone HCL 50 MG TABLET (FP) PO SCH (21:41)
[2018-09-02] MEDS: LIDOCAINE PATCH REMOVAL MC SCH (22:43)
[2018-09-03] MEDS: CYCLOBENZAPRINE HCL 5 MG TABLET PO SCH (06:14)
[2018-09-03] MEDS: PANTOPRAZOLE 20 MG TABLET (FP) PO SCH (06:14)
[2018-09-03] MEDS: GABAPENTIN 300 MG CAPSULE (FP) PO SCH (06:14)
[2018-09-03 07:21] VITALS: BP 130/96; PULSE 98; TEMP 98.3
--- NOTE | 2018-09-03 09:37 | PN ---
Psychiatric Progress Note Vital Signs: Vital Signs Period Temp Pulse Resp BP Sys/Taylor Pulse Ox Last 24 Hr 98.3 F 98 18-18 130/96 Date of Session: 09/03/18 Chief Complaint:: "Discharge" HPI: Patient was admitted to rehab for alcohol dependence. ROS: Significant for bronchial asthma, hypertension, GERD, neuropathy, chronic low back pain/sciatica, history of treatment for hepatitis C and neurosurgery for herniated disc. Current Medications: Active Medications Generic Name Dose Route Start Last Admin Trade Name Freq PRN Reason Stop Dose Admin Acetaminophen 650 mg 08/20/18 19:18 08/31/18 14:18 Tylenol - PO 650 mg Q4H PRN Administration FEVER Al Hydroxide/Mg Hydroxide 30 ml 08/20/18 19:18 Mylanta Oral Suspension - PO Q6H PRN DYSPEPSIA Albuterol Sulfate 1 amp 08/20/18 19:15 Ventolin 0.083% Nebulizer Soln - NEB Q6H PRN SHORT OF BREATH/WHEEZING Atorvastatin Calcium 20 mg 08/21/18 22:00 09/02/18 21:41 Lipitor - PO 20 mg HS NEISHA Administration Cyclobenzaprine HCl 5 mg 08/23/18 20:29 09/03/18 06:14 Cyclobenzaprine Hcl PO 5 mg TID NEISHA Administration Duloxetine HCl 40 mg 08/21/18 14:00 09/02/18 10:23 Cymbalta - PO 40 mg DAILY NEISHA Administration Eucalyptus/Menthol/Phenol/Sorbitol 1 each 08/20/18 19:18 Cepastat Lozenge - MM Q4H PRN SORE THROAT Gabapentin 300 mg 08/29/18 14:00 09/03/18 06:14 Neurontin - PO 300 mg TID NEISHA Administration Guaifenesin 10 ml 08/20/18 19:18 Robitussin Dm - PO Q6H PRN COUGH Hydroxyzine Pamoate 50 mg 08/20/18 19:18 08/26/18 21:30 Vistaril - PO 50 mg Q4H PRN Administration AGITATION Ibuprofen 400 mg 08/20/18 19:18 08/20/18 22:55 Motrin - PO 400 mg Q6H PRN Administration Pain level 4-6 Lidocaine 1 patch 08/21/18 10:00 09/02/18 10:24 Lidoderm Patch - TP 1 patch DAILY NEISHA Administration Loperamide HCl 4 mg 08/20/18 19:18 Imodium - PO Q6H PRN DIARRHEA Magnesium Citrate 300 ml 08/20/18 19:18 Citroma - PO Q48H PRN CONSTIPATION Magnesium Hydroxide 30 ml 08/20/18 19:18 Milk Of Magnesia - PO DAILY PRN CONSTIPATION Meclizine HCl 12.5 mg 08/22/18 21:38 Antivert - PO Q6H PRN VERTIGO Melatonin 5 mg 08/20/18 22:00 08/26/18 21:30 Melatonin PO 5 mg HS PRN Administration INSOMNIA Miscellaneous 1 each 08/20/18 22:00 09/02/18 22:43 Lidoderm Patch Removal MC 1 each DAILY@2200 NEISHA Administration Nicotine 14 mg 08/21/18 10:00 09/02/18 10:24 Nicoderm Patch - TD Not Given DAILY NEISHA Nicotine Polacrilex 2 mg 08/20/18 19:18 Nicorette Gum - BUC Q2H PRN NICOTINE REPLACEMENT RX Olanzapine 20 mg 08/21/18 22:00 09/02/18 21:41 Zyprexa - PO 20 mg HS NEISHA Administration Pantoprazole Sodium 20 mg 08/22/18 07:00 09/03/18 06:14 Protonix - PO 20 mg BIDAC NEISHA Administration Multivit/Folic Acid/Iron 1 tab 08/21/18 10:00 09/02/18 10:23 Vitamins (Sjr) - PO 1 tab DAILY NEISHA Administration Pseudoephedrine/Triprolidine 1 combo 08/20/18 19:18 Actifed - PO TID PRN NASAL CONGESTION Thiamine HCl 100 mg 08/20/18 22:00 09/02/18 21:41 Vitamin B1 - PO 100 mg HS NEISHA Administration Trazodone HCl 150 mg 08/21/18 22:00 09/02/18 21:41 Desyrel - PO 150 mg HS NEISHA Administration Medication(s) Change(s): No. Current Side Effect: No Lab tests ordered: No Lab tests reviewed: Yes Provider note:: Patient able to complete the program on 09/03/18. He has met his treatment goals and will continue to address his issues at [facility] outpatient clinic. He verbalized understanding the consequences of his addicition and the need to make positive changes to his lifestyle in order to maintain abstinence. He responded well to Cymbalta 40mg DR + Trazodone 150mg qhs + Zyprexa 20mg qhs. A 30 day prescription was electronically sent of his above medications to [facility] at [address] [place] [address]. Patient is stable for discharge on 09/03/18. Total face to face time:: 35 Mental Status Exam - Mental Status Exam Alert and Oriented to: Time, Place, Person Cognitive Function: Good Patient Appearance: Well Groomed Mood: Hopeful Affect: Appropriate Patient Behavior: Appropriate, Cooperative Speech Pattern: Clear, Appropriate Voice Loudness: Normal Thought Process: Intact, Goal Oriented Thought Disorder: Not Present Hallucinations: Denies Suicidal Ideation: Denies Homicidal Ideation: Denies Insight/Judgement: Good Sleep: Well Appetite: Good Muscle strength/Tone: Normal Gait/Station: Normal Psychiatric Treatment Plan - Problem List (1) Alcohol dependence Qualifiers: Substance use status: uncomplicated Qualified Code(s): F10.20 - Alcohol dependence, uncomplicated (4) Nicotine dependence Qualifiers: Nicotine product type: cigarettes Substance use status: in withdrawal Qualified Code(s): F17.213 - Nicotine dependence, cigarettes, with withdrawal
[2018-09-03] MEDS: LIDOCAINE 5% TOPICAL PATCH TP SCH (10:15)
[2018-09-03] MEDS: DULoxetine HCL 20 MG CAPSULE.DR (FP) PO SCH (10:15)
[2018-09-03] MEDS: PRENATAL VITAMINS W/ FOLIC ACID TABLET (FP) PO SCH (10:15)
[2018-09-03] MEDS: NICOTINE 14 MG/24 HOURS TOPICAL PATCH TD SCH (10:16)
--- NOTE | 2018-09-04 13:36 | PN ---
[facility] Progress Note Note: PT DISCHARGED ON 09/03/18. REPORTS HE HAS A PRIMARY CARE PROVIDER DR LINH DAUGHERTY AT [facility]. PT STATES HE HAS OWN MEDS. Vital Signs (72 hours) 09/02/18 09/02/18 09/02/18 00:30 03:30 07:14 Temperature 97.3 F L Pulse Rate 90 Respiratory 18 18 18 Rate Blood Pressure 123/77 09/03/18 09/03/18 09/03/18 00:30 03:30 07:20 Temperature 98.3 F Pulse Rate 98 H Respiratory 18 18 18 Rate Blood Pressure 130/96 PLAN:FOLLOW UP WITH PRIMARY CARE WITHIN ONE WEEK AFTER DISCHARGE.
== END 2018-09-03 11:14 | disposition home or self-care (01) | DRG 895 ==
LOC: YASAS 14:13 → Y5N 18:42
PROVIDERS: ADMIT Psychiatry & Neurology Psychiatry; ATTEND Psychiatry & Neurology Psychiatry
PROC: HZ42ZZZ Group Counseling for Substance Abuse Treatment, Cognitive-Behavioral (ICD-10-PCS; principal; 2018-08-20)
DX: F10.280 Alcohol dependence with alcohol-induced anxiety disorder (principal); F33.9 Major depressive disorder, recurrent, unspecified; F10.282 Alcohol dependence with alcohol-induced sleep disorder; F17.213 Nicotine dependence, cigarettes, with withdrawal; F43.10 Post-traumatic stress disorder, unspecified; F29 Unspecified psychosis not due to a substance or known physiological condition; K21.9 Gastro-esophageal reflux disease without esophagitis; I10 Essential (primary) hypertension; M54.42 Lumbago with sciatica, left side; G89.29 Other chronic pain; B18.2 Chronic viral hepatitis C; J45.909 Unspecified asthma, uncomplicated; R76.11 Nonspecific reaction to tuberculin skin test without active tuberculosis; R29.2 Abnormal reflex; E66.9 Obesity, unspecified; Z68.30 Body mass index [BMI] 30.0-30.9, adult; Z99.89 Dependence on other enabling machines and devices; Z91.5 Personal history of self-harm
CPT/HCPCS: 36415; 71046-TC-FY; 80053; 81003; 85027; 86593; 93005; 93010

== ENCOUNTER 2021-05-08 10:03 | Inpatient (IN) | payer OTHER ==
[2021-05-08 10:30] VITALS: BMI 27.7
[2021-05-08] MEDS ORDERED: BISMUTH SUBSALICYLATE 524 MG/30 ML PO PRN (10:57)
[2021-05-08] MEDS ORDERED: ACETAMINOPHEN 325 MG TABLET (FP) PO PRN ×2 (10:57)
[2021-05-08] MEDS ORDERED: MAGNESIUM HYDROX 2400MG/30ML ORAL SUSPENSION 30 ML CUP PO PRN (10:57)
[2021-05-08] MEDS ORDERED: METHOCARBAMOL 500 MG TABLET PO PRN (10:57)
[2021-05-08] MEDS ORDERED: LORazepam 1 MG TABLET PO PRN (10:57)
[2021-05-08] MEDS ORDERED: MENTHOL/PHENOL 1 EACH UD MM PRN (10:57)
[2021-05-08] MEDS ORDERED: NICOTINE POLACRILEX 2 MG GUM BUC PRN (10:57)
[2021-05-08] MEDS ORDERED: MAGNESIUM CITRATE 300 ML BOTTLE PO PRN (10:57)
[2021-05-08] MEDS ORDERED: IBUPROFEN 400 MG TABLET (FP) PO PRN (10:57)
[2021-05-08] MEDS ORDERED: PREGABALIN 25 MG CAPSULE PO SCH (11:00)
[2021-05-08] MEDS ORDERED: ONDANSETRON *ODT* 4 MG TABLET ONE (11:01)
[2021-05-08] MEDS: ONDANSETRON *ODT* 4 MG TABLET SL PRN ×2 (11:05→20:24)
[2021-05-08] MEDS: amLODIPine BESYLATE 5 MG TABLET (FP) PO SCH (12:13)
[2021-05-08] MEDS: NICOTINE 21 MG/24 HOURS TOPICAL PATCH TD SCH (12:16)
[2021-05-08] MEDS: PRENATAL VITAMINS W/ FOLIC ACID TABLET (FP) PO SCH (12:16)
[2021-05-08 13:31] LABS: HEMATOCRIT 43.6 % (35.4-49); HEMOGLOBIN 14.7 GM/dL (11.7-16.9); MCH 29.2 pg (25.7-33.7); MCHC 33.8 g/dl (32.0-35.9); MEAN CELL VOLUME 86.4 fl (80-96); MEAN PLT VOLUME 8.2 fl (7.5-11.1); PLATELET COUNT 284 10^3/uL (134-434); RBC 5.04 M/mm3 (4.00-5.60); RDW 15.3 % (11.9-15.9); WHITE BLOOD COUNT 4.1 K/mm3 (4.0-10.0)
[2021-05-08 13:37] LABS: CALCIUM 8.4 mg/dL (8.5-10.1)
[2021-05-08 13:38] LABS: ALBUMIN 4.4 g/dl (3.4-5.0); BLOOD UREA NITROGEN 12.9 mg/dL (7-18)
[2021-05-08 13:40] LABS: CREATININE 0.9 mg/dL (0.55-1.3)
[2021-05-08 13:42] LABS: BILIRUBIN,TOTAL 0.5 mg/dL (0.2-1)
[2021-05-08] MEDS: hydrOXYzine PAMOATE 25 MG CAPSULE (FP) PO SCH ×3 (14:32→22:15)
[2021-05-08] MEDS: LORazepam 2 MG TABLET PO SCH ×2 (17:35→22:16)
[2021-05-08] MEDS: THIAMINE HCL 100 MG TABLET (FP) PO SCH (22:15)
[2021-05-08] MEDS: PRAZOSIN HCL 1 MG CAPSULE PO SCH (22:15)
[2021-05-08] MEDS: QUEtiapine FUMARATE 100 MG TABLET (FP) PO SCH (22:15)
[2021-05-08] MEDS: MELATONIN 5 MG TABLETS PO SCH (22:15)
[2021-05-08] MEDS: MAG HYDROX/AL HYDROX/SIMETH 30 ML UNIT-DOSE CUP PO PRN (22:17)
[2021-05-09] MEDS: LORazepam 2 MG TABLET PO SCH ×4 (05:42→22:16)
[2021-05-09] MEDS: hydrOXYzine PAMOATE 25 MG CAPSULE (FP) PO SCH ×5 (05:42→22:17)
[2021-05-09] MEDS: NICOTINE 21 MG/24 HOURS TOPICAL PATCH TD SCH (10:18)
[2021-05-09] MEDS: PRENATAL VITAMINS W/ FOLIC ACID TABLET (FP) PO SCH (10:18)
[2021-05-09] MEDS: amLODIPine BESYLATE 5 MG TABLET (FP) PO SCH (10:19)
[2021-05-09] MEDS: ONDANSETRON *ODT* 4 MG TABLET SL PRN (10:19)
[2021-05-09] MEDS: MAG HYDROX/AL HYDROX/SIMETH 30 ML UNIT-DOSE CUP PO PRN (17:53)
[2021-05-09] MEDS: PRAZOSIN HCL 1 MG CAPSULE PO SCH (22:17)
[2021-05-09] MEDS: MELATONIN 5 MG TABLETS PO SCH (22:17)
[2021-05-09] MEDS: QUEtiapine FUMARATE 100 MG TABLET (FP) PO SCH (22:17)
[2021-05-09] MEDS: THIAMINE HCL 100 MG TABLET (FP) PO SCH (22:17)
[2021-05-10] MEDS: MAG HYDROX/AL HYDROX/SIMETH 30 ML UNIT-DOSE CUP PO PRN ×2 (01:40→22:09)
[2021-05-10] MEDS: LORazepam 1 MG TABLET PO SCH ×4 (06:10→22:08)
[2021-05-10] MEDS: hydrOXYzine PAMOATE 25 MG CAPSULE (FP) PO SCH ×5 (06:10→22:04)
[2021-05-10] MEDS: PRENATAL VITAMINS W/ FOLIC ACID TABLET (FP) PO SCH (10:17)
[2021-05-10] MEDS: amLODIPine BESYLATE 5 MG TABLET (FP) PO SCH (10:17)
[2021-05-10] MEDS: NICOTINE 21 MG/24 HOURS TOPICAL PATCH TD SCH (10:18)
[2021-05-10] MEDS: THIAMINE HCL 100 MG TABLET (FP) PO SCH (22:04)
[2021-05-10] MEDS: MELATONIN 5 MG TABLETS PO SCH (22:04)
[2021-05-10] MEDS: QUEtiapine FUMARATE 100 MG TABLET (FP) PO SCH (22:04)
[2021-05-10] MEDS: PRAZOSIN HCL 1 MG CAPSULE PO SCH (22:06)
[2021-05-11] MEDS ORDERED: LORazepam 0.5 MG TABLET PO PRN
[2021-05-11] MEDS: LORazepam 0.5 MG TABLET PO SCH ×4 (06:06→22:04)
[2021-05-11] MEDS: hydrOXYzine PAMOATE 25 MG CAPSULE (FP) PO SCH ×5 (06:06→22:05)
[2021-05-11 10:07] LABS: SARS-CoV-2 NAA Not Detected (Not Detected)
[2021-05-11] MEDS: amLODIPine BESYLATE 5 MG TABLET (FP) PO SCH (10:44)
[2021-05-11] MEDS: PRENATAL VITAMINS W/ FOLIC ACID TABLET (FP) PO SCH (10:44)
[2021-05-11] MEDS: NICOTINE 21 MG/24 HOURS TOPICAL PATCH TD SCH (10:45)
[2021-05-11] MEDS: PRAZOSIN HCL 1 MG CAPSULE PO SCH (22:04)
[2021-05-11] MEDS: THIAMINE HCL 100 MG TABLET (FP) PO SCH (22:05)
[2021-05-11] MEDS: QUEtiapine FUMARATE 100 MG TABLET (FP) PO SCH (22:05)
[2021-05-11] MEDS: MELATONIN 5 MG TABLETS PO SCH (22:05)
[2021-05-12] MEDS: MAG HYDROX/AL HYDROX/SIMETH 30 ML UNIT-DOSE CUP PO PRN (03:26)
[2021-05-12] MEDS ORDERED: LORazepam 0.5 MG TABLET PO ONE (05:00)
[2021-05-12] MEDS: hydrOXYzine PAMOATE 25 MG CAPSULE (FP) PO SCH ×3 (05:25→13:46)
[2021-05-12 09:14] VITALS: BP 138/81; PULSE 104; TEMP 96.9
[2021-05-12] MEDS: amLODIPine BESYLATE 5 MG TABLET (FP) PO SCH (10:37)
[2021-05-12] MEDS: NICOTINE 21 MG/24 HOURS TOPICAL PATCH TD SCH (10:37)
[2021-05-12] MEDS: PRENATAL VITAMINS W/ FOLIC ACID TABLET (FP) PO SCH (10:37)
== END 2021-05-12 13:00 | disposition other institution (70) | DRG 897 ==
LOC: YASAS 10:03 → Y3N 11:05
PROVIDERS: ADMIT Allergy & Immunology; ATTEND Allergy & Immunology
PROC: HZ2ZZZZ Detoxification Services for Substance Abuse Treatment (ICD-10-PCS; principal; 2021-05-08)
DX: F10.230 Alcohol dependence with withdrawal, uncomplicated (principal); F10.280 Alcohol dependence with alcohol-induced anxiety disorder; F10.282 Alcohol dependence with alcohol-induced sleep disorder; F17.210 Nicotine dependence, cigarettes, uncomplicated; F19.24 Other psychoactive substance dependence with psychoactive substance-induced mood disorder; F32.9 Major depressive disorder, single episode, unspecified; F43.10 Post-traumatic stress disorder, unspecified; I10 Essential (primary) hypertension; K21.9 Gastro-esophageal reflux disease without esophagitis; J45.909 Unspecified asthma, uncomplicated; B18.2 Chronic viral hepatitis C; M54.5 Low back pain; G89.29 Other chronic pain; R76.11 Nonspecific reaction to tuberculin skin test without active tuberculosis; G62.9 Polyneuropathy, unspecified; R00.0 Tachycardia, unspecified; R26.2 Difficulty in walking, not elsewhere classified; Z99.89 Dependence on other enabling machines and devices
CPT/HCPCS: 36415; 80053; 85027; 86780; 93005; 93010; C9803; Q0162; U0003; U0005

== ENCOUNTER 2021-05-12 12:39 | Inpatient (IN) | payer OTHER ==
[2021-05-12] MEDS ORDERED: LOPERAMIDE HCL 2 MG CAPSULE PO PRN (14:14)
[2021-05-12] MEDS ORDERED: MAGNESIUM HYDROX 2400MG/30ML ORAL SUSPENSION 30 ML CUP PO PRN (14:14)
[2021-05-12] MEDS ORDERED: MAGNESIUM CITRATE 300 ML BOTTLE PO PRN (14:14)
[2021-05-12] MEDS ORDERED: ACETAMINOPHEN 325 MG TABLET (FP) PO PRN (14:14)
[2021-05-12] MEDS ORDERED: NICOTINE POLACRILEX 2 MG GUM BUC PRN (14:14)
[2021-05-12] MEDS ORDERED: MENTHOL/PHENOL 1 EACH UD MM PRN (14:14)
[2021-05-12] MEDS ORDERED: IBUPROFEN 400 MG TABLET (FP) PO PRN (14:14)
[2021-05-12] MEDS ORDERED: P-EPHED 60MG/TRIPROLIDI 2.5MG TABLET PO PRN (14:14)
[2021-05-12] MEDS ORDERED: guaiFENesin 200 MG/10 ML 10 ML UNIT-DOSE CUPS PO PRN (14:14)
[2021-05-12] MEDS ORDERED: hydrOXYzine PAMOATE 25 MG CAPSULE (FP) PO PRN (14:14)
[2021-05-12] MEDS: QUEtiapine FUMARATE 100 MG TABLET (FP) PO SCH (22:07)
[2021-05-12] MEDS: THIAMINE HCL 100 MG TABLET (FP) PO SCH (22:07)
[2021-05-12] MEDS: MELATONIN 5 MG TABLETS PO SCH (22:07)
[2021-05-12] MEDS: PRAZOSIN HCL 1 MG CAPSULE PO SCH (22:17)
[2021-05-12] MEDS: MAG HYDROX/AL HYDROX/SIMETH 30 ML UNIT-DOSE CUP PO PRN (22:35)
[2021-05-13] MEDS ORDERED: PT OWN MED DRAWER 7, Y5N ONE (08:58)
[2021-05-13] MEDS: amLODIPine BESYLATE 5 MG TABLET (FP) PO SCH (09:47)
[2021-05-13] MEDS: PRENATAL VITAMINS W/ FOLIC ACID TABLET (FP) PO SCH (09:47)
[2021-05-13] MEDS: NICOTINE 21 MG/24 HOURS TOPICAL PATCH TD SCH (09:47)
[2021-05-13] MEDS: MAG HYDROX/AL HYDROX/SIMETH 30 ML UNIT-DOSE CUP PO PRN (17:29)
[2021-05-13] MEDS: PRAZOSIN HCL 1 MG CAPSULE PO SCH (21:22)
[2021-05-13] MEDS: MELATONIN 5 MG TABLETS PO SCH (21:22)
[2021-05-13] MEDS: QUEtiapine FUMARATE 100 MG TABLET (FP) PO SCH (21:22)
[2021-05-13] MEDS: THIAMINE HCL 100 MG TABLET (FP) PO SCH (21:23)
[2021-05-14] MEDS: amLODIPine BESYLATE 5 MG TABLET (FP) PO SCH (09:47)
[2021-05-14] MEDS: PRENATAL VITAMINS W/ FOLIC ACID TABLET (FP) PO SCH (09:47)
[2021-05-14] MEDS: NICOTINE 21 MG/24 HOURS TOPICAL PATCH TD SCH (09:47)
[2021-05-14] MEDS: MAG HYDROX/AL HYDROX/SIMETH 30 ML UNIT-DOSE CUP PO PRN (19:33)
[2021-05-14] MEDS: THIAMINE HCL 100 MG TABLET (FP) PO SCH (21:09)
[2021-05-14] MEDS: PRAZOSIN HCL 1 MG CAPSULE PO SCH (21:09)
[2021-05-14] MEDS: QUEtiapine FUMARATE 100 MG TABLET (FP) PO SCH (21:09)
[2021-05-14] MEDS: MELATONIN 5 MG TABLETS PO SCH (21:09)
[2021-05-15] MEDS: amLODIPine BESYLATE 5 MG TABLET (FP) PO SCH (09:43)
[2021-05-15] MEDS: NICOTINE 21 MG/24 HOURS TOPICAL PATCH TD SCH (09:43)
[2021-05-15] MEDS: PRENATAL VITAMINS W/ FOLIC ACID TABLET (FP) PO SCH (09:43)
[2021-05-15] MEDS: MAG HYDROX/AL HYDROX/SIMETH 30 ML UNIT-DOSE CUP PO PRN (09:45)
[2021-05-15] MEDS: SERTRALINE HCL 50 MG TABLET (FP) PO SCH (11:56)
[2021-05-15] MEDS: PANTOPRAZOLE 40 MG TABLET PO SCH (11:56)
[2021-05-15] MEDS: QUEtiapine FUMARATE 200 MG TABLET PO SCH (21:09)
[2021-05-15] MEDS: MELATONIN 5 MG TABLETS PO SCH (21:09)
[2021-05-15] MEDS: OLANZapine 10 MG TABLET PO SCH (21:09)
[2021-05-15] MEDS: THIAMINE HCL 100 MG TABLET (FP) PO SCH (21:09)
[2021-05-15] MEDS: PRAZOSIN HCL 1 MG CAPSULE PO SCH (21:09)
[2021-05-16] MEDS: NICOTINE 21 MG/24 HOURS TOPICAL PATCH TD SCH (10:01)
[2021-05-16] MEDS: PANTOPRAZOLE 40 MG TABLET PO SCH (10:02)
[2021-05-16] MEDS: SERTRALINE HCL 50 MG TABLET (FP) PO SCH (10:02)
[2021-05-16] MEDS: PRENATAL VITAMINS W/ FOLIC ACID TABLET (FP) PO SCH (10:02)
[2021-05-16] MEDS: amLODIPine BESYLATE 5 MG TABLET (FP) PO SCH (10:02)
[2021-05-16] MEDS: QUEtiapine FUMARATE 200 MG TABLET PO SCH (21:26)
[2021-05-16] MEDS: THIAMINE HCL 100 MG TABLET (FP) PO SCH (21:26)
[2021-05-16] MEDS: PRAZOSIN HCL 1 MG CAPSULE PO SCH (21:26)
[2021-05-16] MEDS: OLANZapine 10 MG TABLET PO SCH (21:26)
[2021-05-16] MEDS: MELATONIN 5 MG TABLETS PO SCH (21:26)
[2021-05-17] MEDS: amLODIPine BESYLATE 5 MG TABLET (FP) PO SCH (09:51)
[2021-05-17] MEDS: PANTOPRAZOLE 40 MG TABLET PO SCH (09:51)
[2021-05-17] MEDS: SERTRALINE HCL 50 MG TABLET (FP) PO SCH (09:51)
[2021-05-17] MEDS: NICOTINE 21 MG/24 HOURS TOPICAL PATCH TD SCH (09:52)
[2021-05-17] MEDS: PRENATAL VITAMINS W/ FOLIC ACID TABLET (FP) PO SCH (09:52)
[2021-05-17] MEDS: OLANZapine 10 MG TABLET PO SCH (21:03)
[2021-05-17] MEDS: MELATONIN 5 MG TABLETS PO SCH (21:03)
[2021-05-17] MEDS: THIAMINE HCL 100 MG TABLET (FP) PO SCH (21:03)
[2021-05-17] MEDS: PRAZOSIN HCL 1 MG CAPSULE PO SCH (21:03)
[2021-05-17] MEDS: QUEtiapine FUMARATE 200 MG TABLET PO SCH (21:03)
[2021-05-18] MEDS: NICOTINE 21 MG/24 HOURS TOPICAL PATCH TD SCH (09:57)
[2021-05-18] MEDS: amLODIPine BESYLATE 5 MG TABLET (FP) PO SCH (09:58)
[2021-05-18] MEDS: PRENATAL VITAMINS W/ FOLIC ACID TABLET (FP) PO SCH (09:58)
[2021-05-18] MEDS: SERTRALINE HCL 50 MG TABLET (FP) PO SCH (09:58)
[2021-05-18] MEDS: PANTOPRAZOLE 40 MG TABLET PO SCH (09:58)
[2021-05-18] MEDS: QUEtiapine FUMARATE 200 MG TABLET PO SCH (21:26)
[2021-05-18] MEDS: MELATONIN 5 MG TABLETS PO SCH (21:27)
[2021-05-18] MEDS: THIAMINE HCL 100 MG TABLET (FP) PO SCH (21:27)
[2021-05-18] MEDS: OLANZapine 10 MG TABLET PO SCH (21:27)
[2021-05-18] MEDS: PRAZOSIN HCL 1 MG CAPSULE PO SCH (21:27)
[2021-05-19] MEDS: amLODIPine BESYLATE 5 MG TABLET (FP) PO SCH (09:57)
[2021-05-19] MEDS: NICOTINE 21 MG/24 HOURS TOPICAL PATCH TD SCH (09:57)
[2021-05-19] MEDS: PRENATAL VITAMINS W/ FOLIC ACID TABLET (FP) PO SCH (09:57)
[2021-05-19] MEDS: PANTOPRAZOLE 40 MG TABLET PO SCH (09:57)
[2021-05-19] MEDS: SERTRALINE HCL 50 MG TABLET (FP) PO SCH (09:57)
[2021-05-19] MEDS: PRAZOSIN HCL 1 MG CAPSULE PO SCH (21:01)
[2021-05-19] MEDS: QUEtiapine FUMARATE 200 MG TABLET PO SCH (21:01)
[2021-05-19] MEDS: THIAMINE HCL 100 MG TABLET (FP) PO SCH (21:01)
[2021-05-19] MEDS: OLANZapine 10 MG TABLET PO SCH (21:01)
[2021-05-19] MEDS: MELATONIN 5 MG TABLETS PO SCH (21:02)
[2021-05-20] MEDS: NICOTINE 21 MG/24 HOURS TOPICAL PATCH TD SCH (09:50)
[2021-05-20] MEDS: SERTRALINE HCL 50 MG TABLET (FP) PO SCH (09:50)
[2021-05-20] MEDS: amLODIPine BESYLATE 5 MG TABLET (FP) PO SCH (09:50)
[2021-05-20] MEDS: PRENATAL VITAMINS W/ FOLIC ACID TABLET (FP) PO SCH (09:50)
[2021-05-20] MEDS: PANTOPRAZOLE 40 MG TABLET PO SCH (09:51)
[2021-05-20] MEDS: QUEtiapine FUMARATE 200 MG TABLET PO SCH (21:11)
[2021-05-20] MEDS: OLANZapine 10 MG TABLET PO SCH (21:11)
[2021-05-20] MEDS: PRAZOSIN HCL 1 MG CAPSULE PO SCH (21:11)
[2021-05-20] MEDS: THIAMINE HCL 100 MG TABLET (FP) PO SCH (21:11)
[2021-05-20] MEDS: MELATONIN 5 MG TABLETS PO SCH (21:11)
[2021-05-21] MEDS: NICOTINE 21 MG/24 HOURS TOPICAL PATCH TD SCH (09:09)
[2021-05-21] MEDS: amLODIPine BESYLATE 5 MG TABLET (FP) PO SCH (09:09)
[2021-05-21] MEDS: PRENATAL VITAMINS W/ FOLIC ACID TABLET (FP) PO SCH (09:09)
[2021-05-21] MEDS: PANTOPRAZOLE 40 MG TABLET PO SCH (09:09)
[2021-05-21] MEDS: SERTRALINE HCL 50 MG TABLET (FP) PO SCH (09:10)
[2021-05-21] MEDS: OLANZapine 10 MG TABLET PO SCH (21:08)
[2021-05-21] MEDS: PRAZOSIN HCL 1 MG CAPSULE PO SCH (21:08)
[2021-05-21] MEDS: THIAMINE HCL 100 MG TABLET (FP) PO SCH (21:08)
[2021-05-21] MEDS: QUEtiapine FUMARATE 200 MG TABLET PO SCH (21:08)
[2021-05-21] MEDS: MELATONIN 5 MG TABLETS PO SCH (21:09)
[2021-05-22] MEDS: SERTRALINE HCL 50 MG TABLET (FP) PO SCH (09:59)
[2021-05-22] MEDS: NICOTINE 21 MG/24 HOURS TOPICAL PATCH TD SCH (10:00)
[2021-05-22] MEDS: amLODIPine BESYLATE 5 MG TABLET (FP) PO SCH (10:00)
[2021-05-22] MEDS: PRENATAL VITAMINS W/ FOLIC ACID TABLET (FP) PO SCH (10:00)
[2021-05-22] MEDS: PANTOPRAZOLE 40 MG TABLET PO SCH (10:00)
[2021-05-22] MEDS: MELATONIN 5 MG TABLETS PO SCH (21:11)
[2021-05-22] MEDS: PRAZOSIN HCL 1 MG CAPSULE PO SCH (21:11)
[2021-05-22] MEDS: QUEtiapine FUMARATE 200 MG TABLET PO SCH (21:11)
[2021-05-22] MEDS: OLANZapine 10 MG TABLET PO SCH (21:11)
[2021-05-22] MEDS: THIAMINE HCL 100 MG TABLET (FP) PO SCH (21:12)
[2021-05-23] MEDS: NICOTINE 21 MG/24 HOURS TOPICAL PATCH TD SCH (09:40)
[2021-05-23] MEDS: amLODIPine BESYLATE 5 MG TABLET (FP) PO SCH (09:40)
[2021-05-23] MEDS: PRENATAL VITAMINS W/ FOLIC ACID TABLET (FP) PO SCH (09:40)
[2021-05-23] MEDS: PANTOPRAZOLE 40 MG TABLET PO SCH (09:41)
[2021-05-23] MEDS: SERTRALINE HCL 50 MG TABLET (FP) PO SCH (09:41)
[2021-05-23] MEDS: PRAZOSIN HCL 1 MG CAPSULE PO SCH (21:38)
[2021-05-23] MEDS: MELATONIN 5 MG TABLETS PO SCH (21:38)
[2021-05-23] MEDS: THIAMINE HCL 100 MG TABLET (FP) PO SCH (21:38)
[2021-05-23] MEDS: QUEtiapine FUMARATE 200 MG TABLET PO SCH (21:38)
[2021-05-23] MEDS: OLANZapine 10 MG TABLET PO SCH (21:38)
[2021-05-24] MEDS: NICOTINE 21 MG/24 HOURS TOPICAL PATCH TD SCH (09:35)
[2021-05-24] MEDS: amLODIPine BESYLATE 5 MG TABLET (FP) PO SCH (09:36)
[2021-05-24] MEDS: PANTOPRAZOLE 40 MG TABLET PO SCH (09:36)
[2021-05-24] MEDS: PRENATAL VITAMINS W/ FOLIC ACID TABLET (FP) PO SCH (09:36)
[2021-05-24] MEDS: SERTRALINE HCL 50 MG TABLET (FP) PO SCH (09:36)
[2021-05-24] MEDS ORDERED: ALBUTEROL SO4 HFA INHALER IH PRN (15:28)
[2021-05-24] MEDS: THIAMINE HCL 100 MG TABLET (FP) PO SCH (21:02)
[2021-05-24] MEDS: MELATONIN 5 MG TABLETS PO SCH (21:02)
[2021-05-24] MEDS: QUEtiapine FUMARATE 200 MG TABLET PO SCH (21:02)
[2021-05-24] MEDS: PRAZOSIN HCL 1 MG CAPSULE PO SCH (21:02)
[2021-05-24] MEDS: OLANZapine 10 MG TABLET PO SCH (21:02)
[2021-05-25 06:55] VITALS: TEMP 97.3
[2021-05-25 08:50] VITALS: BP 128/78; PULSE 116
[2021-05-25] MEDS: PANTOPRAZOLE 40 MG TABLET PO SCH (09:35)
[2021-05-25] MEDS: NICOTINE 21 MG/24 HOURS TOPICAL PATCH TD SCH (09:35)
[2021-05-25] MEDS: SERTRALINE HCL 50 MG TABLET (FP) PO SCH (09:35)
[2021-05-25] MEDS: amLODIPine BESYLATE 5 MG TABLET (FP) PO SCH (09:35)
[2021-05-25] MEDS: PRENATAL VITAMINS W/ FOLIC ACID TABLET (FP) PO SCH (09:35)
== END 2021-05-25 15:35 | disposition home or self-care (01) | DRG 895 ==
LOC: YASAS 12:39 → Y3E 12:40
PROVIDERS: ADMIT Allergy & Immunology; ATTEND Allergy & Immunology
PROC: HZ42ZZZ Group Counseling for Substance Abuse Treatment, Cognitive-Behavioral (ICD-10-PCS; principal; 2021-05-12)
DX: F10.20 Alcohol dependence, uncomplicated (principal); F17.210 Nicotine dependence, cigarettes, uncomplicated; F43.10 Post-traumatic stress disorder, unspecified; F32.9 Major depressive disorder, single episode, unspecified; G62.9 Polyneuropathy, unspecified; I10 Essential (primary) hypertension; H91.92 Unspecified hearing loss, left ear; J45.909 Unspecified asthma, uncomplicated; K21.9 Gastro-esophageal reflux disease without esophagitis; M54.41 Lumbago with sciatica, right side; G89.29 Other chronic pain; B18.2 Chronic viral hepatitis C; R76.11 Nonspecific reaction to tuberculin skin test without active tuberculosis; Z91.5 Personal history of self-harm; Z99.89 Dependence on other enabling machines and devices

== ENCOUNTER 2023-12-17 14:50 | Emergency (ER) | payer OTHER ==
[2023-12-17 15:02] VITALS: BMI 27.1
[2023-12-17] MEDS ORDERED: ACETAMINOPHEN INJECTION 100 ML IVPB ONE ×2 (16:12→17:07)
[2023-12-17] MEDS: LACTATED RINGERS SOLUTION 1000 ML INFUS.BAG IV ONE ×2 (16:30→20:33)
[2023-12-17 16:34] LABS: PH,URINE 5.5 (5.0-8.0); URINE APPEARANCE CLEAR; URINE BILIRUBIN NEGATIVE (NEGATIVE); URINE COLOR YELLOW; URINE GLUCOSE (UA) NEGATIVE (NEGATIVE); URINE KETONE NEGATIVE (NEGATIVE); URINE LEUK ESTERASE NEGATIVE (NEGATIVE); URINE NITRITE NEGATIVE (NEGATIVE); URINE PROTEIN NEGATIVE (NEGATIVE); URINE UROBILINOGEN 0.2 mg/dL (0.2-1.0)
[2023-12-17 16:42] LABS: BASO % 0.7 % (0-2.0); EOS % 0.1 % (0-4.5); HEMATOCRIT 44.1 % (35.4-49); HEMOGLOBIN 15.1 GM/dL (11.7-16.9); LYMPH % 27.4 % (8-40); MCHC 34.2 g/dl (32.0-35.9); MEAN CELL VOLUME 81.9 fl (80-96); MEAN PLT VOLUME 7.9 fl (7.5-11.1); MONO % 7.2 % (3.8-10.2); NEUT % 64.6 % (42.8-82.8); PLATELET COUNT 372 10^3/uL (134-434); RBC 5.39 M/mm3 (4.00-5.60); RDW 15.6 % (11.9-15.9); WHITE BLOOD COUNT 9.6 K/mm3 (4.0-10.0)
[2023-12-17 16:56] LABS: EPI CELLS 0.5 /uL (0-25.1); URINE RBC 10.5 /uL (0-23.9); URINE WBC 5.2 /uL (0-25.8)
[2023-12-17 17:13] LABS: BLOOD UREA NITROGEN 23.8 mg/dL (7-18); CALCIUM 9.4 mg/dL (8.5-10.1); MAGNESIUM 2.4 mg/dL (1.8-2.4)
[2023-12-17 17:16] LABS: CREATININE 1.2 mg/dL (0.55-1.3); PHOSPHOROUS 3.4 mg/dL (2.5-4.9)
[2023-12-17 17:18] LABS: BILIRUBIN,TOTAL 0.5 mg/dL (0.2-1)
[2023-12-17] MEDS: ACETAMINOPHEN 1000 MG/100 ML BAG IVPB ONE (17:23)
[2023-12-17 18:34] LABS: LACTIC ACID 4.2 mmol/L (0.4-2.0)
[2023-12-17] MEDS: SODIUM CHLORIDE 0.9% 500 ML INFUS.BAG IV ONE (23:04)
[2023-12-18 00:52] LABS: LACTIC ACID 3.8 mmol/L (0.4-2.0)
[2023-12-18 04:10] LABS: LACTIC ACID 2.7 mmol/L (0.4-2.0)
[2023-12-18 04:54] VITALS: BP 155/82; PULSE 91; RESP 16; TEMP 97.7
[2023-12-18] MEDS ORDERED: ONDANSETRON *ODT* 4 MG TABLET ONE (04:56)
[2023-12-18] MEDS: ONDANSETRON *ODT* 4 MG TABLET SL ONE (05:13)
[2023-12-19 12:26] LABS: PHENCYCLIDINE,URINE NEGATIVE (NEGATIVE)
[2023-12-19 12:27] LABS: METHADONE, UR NEGATIVE (NEGATIVE); OPIATES, URI NEGATIVE (NEGATIVE); URINE AMPHETAMINES NEGATIVE (NEGATIVE); URINE BENZODIAZEPINES NEGATIVE (NEGATIVE)
[2023-12-19 12:29] LABS: URINE BARBITURATES NEGATIVE (NEGATIVE)
[2023-12-19 12:34] LABS: COCAINE, UR NEGATIVE (NEGATIVE)
== END 2023-12-18 05:55 | disposition home or self-care (01) ==
LOC: JER 14:50
PROC: 3E033NZ Introduction of Analgesics, Hypnotics, Sedatives into Peripheral Vein, Percutaneous Approach (ICD-10-PCS; principal; 2023-12-17)
DX: S09.90XA Unspecified injury of head, initial encounter (principal); F10.930 Alcohol use, unspecified with withdrawal, uncomplicated; R42 Dizziness and giddiness; R51.9 Headache, unspecified; R53.1 Weakness; R55 Syncope and collapse; W19.XXXA Unspecified fall, initial encounter; Y92.009 Unspecified place in unspecified non-institutional (private) residence as the place of occurrence of the external cause
CPT/HCPCS: 0241U-QW; 36415; 70450-TC; 70486-TC; 71045-TC-FY; 72125-TC; 80053; 80307; 81003; 82962; 83605; 83735; 84100; 84484; 85025; 86850; 86900; 86901; 87086; 87186; 93005; 93010; 99285-25; J0131; Q0162

== ENCOUNTER 2023-12-18 06:03 | Inpatient (IN) | payer OTHER ==
[2023-12-18 06:31] VITALS: BMI 29.6
[2023-12-18] MEDS ORDERED: ACETAMINOPHEN 325 MG TABLET (FP) ONE (06:51)
[2023-12-18] MEDS ORDERED: chlordiazePOXIDE HCL 25 MG CAPSULE ONE (06:51)
[2023-12-18] MEDS: ACETAMINOPHEN 325 MG TABLET (FP) PO ONE (06:59)
[2023-12-18] MEDS: chlordiazePOXIDE HCL 25 MG CAPSULE PO ONE (06:59)
[2023-12-18] MEDS ORDERED: NALOXONE HCL (KLOXXADO) 8 MG SPRAY NS PRN (08:52)
[2023-12-18] MEDS ORDERED: NALOXONE HCL 0.4 MG/ML VIAL IM PRN (08:52)
[2023-12-18] MEDS ORDERED: LOPERAMIDE HCL 2 MG CAPSULE PO PRN (08:52)
[2023-12-18] MEDS ORDERED: POLYETHYLENE GLYCOL (HEALTHYLAX) 3350 17 GM PACKET PO PRN (08:52)
[2023-12-18] MEDS ORDERED: ONDANSETRON *ODT* 4 MG TABLET SL PRN (08:52)
[2023-12-18] MEDS ORDERED: ACETAMINOPHEN 325 MG TABLET (FP) PO PRN (08:52)
[2023-12-18] MEDS ORDERED: BENZOCAINE/MENTHOL (CHLORASEPTIC ) LOZENGE MM PRN (08:52)
[2023-12-18] MEDS ORDERED: BENZONATATE 200 MG CAPSULE PO PRN (08:52)
[2023-12-18] MEDS ORDERED: hydrOXYzine PAMOATE 25 MG CAPSULE (FP) PO PRN (08:52)
[2023-12-18] MEDS ORDERED: guaiFENesin 600 MG TABLET.ER (FP) PO PRN (08:52)
[2023-12-18] MEDS ORDERED: BISMUTH SUBSALICYLATE 262 MG/15 ML BTL PO PRN (08:52)
[2023-12-18] MEDS ORDERED: MAGNESIUM HYDROX 2400MG/30ML ORAL SUSPENSION 30 ML CUP PO PRN (08:52)
[2023-12-18] MEDS ORDERED: IBUPROFEN 400 MG TABLET (FP) PO PRN (08:52)
[2023-12-18] MEDS ORDERED: ALBUTEROL SO4 HFA INHALER IH PRN (09:12)
[2023-12-18] MEDS ORDERED: amLODIPine BESYLATE 5 MG TABLET (FP) ONE (09:18)
[2023-12-18] MEDS ORDERED: METHOCARBAMOL 500 MG TABLET ONE (09:18)
[2023-12-18] MEDS: amLODIPine BESYLATE 5 MG TABLET (FP) PO SCH (09:24)
[2023-12-18] MEDS: METHOCARBAMOL 500 MG TABLET PO PRN (09:24)
[2023-12-18] MEDS: PRENATAL VITAMINS W/ FOLIC ACID TABLET (FP) PO SCH (09:25)
[2023-12-18] MEDS: LORazepam 2 MG TABLET PO SCH (10:15)
[2023-12-18] MEDS: PREGABALIN 75 MG CAPSULE PO SCH (10:15)
[2023-12-18] MEDS: MAG HYDROX/AL HYDROX/SIMETH 30 ML UNIT-DOSE CUP PO PRN (11:24)
[2023-12-18] MEDS: THIAMINE HCL 100 MG TABLET (FP) PO SCH (22:26)
[2023-12-18] MEDS: MELATONIN 5 MG TABLETS PO SCH (22:27)
[2023-12-18] MEDS: LORazepam 1 MG TABLET PO PRN (23:24)
[2023-12-19] MEDS: IBUPROFEN 600 MG TABLET (FP) PO PRN (05:33)
[2023-12-19 10:36] LABS: HEMATOCRIT 39.2 % (35.4-49); MCHC 33.2 g/dl (32.0-35.9); MEAN CELL VOLUME 84.3 fl (80-96); MEAN PLT VOLUME 8.4 fl (7.5-11.1); PLATELET COUNT 282 10^3/uL (134-434); RBC 4.65 M/mm3 (4.00-5.60); RDW 15.2 % (11.9-15.9); WHITE BLOOD COUNT 4.2 K/mm3 (4.0-10.0)
[2023-12-19 10:44] LABS: POTASSIUM 4.3 mmol/L (3.5-5.1)
[2023-12-19 10:50] LABS: ALBUMIN 3.7 g/dl (3.4-5.0)
[2023-12-19 10:51] LABS: BLOOD UREA NITROGEN 13.9 mg/dL (7-18); CALCIUM 8.9 mg/dL (8.5-10.1)
[2023-12-19 10:56] LABS: BILIRUBIN,TOTAL 0.7 mg/dL (0.2-1); TOT PROT 6.6 g/dl (6.4-8.2)
[2023-12-19] MEDS: FLU VACCINE (FLULAVAL) PF 60 MCG/0.5 ML SYRINGE 2023-2024 IM ONE (11:37)
[2023-12-19] MEDS: SERTRALINE HCL 50 MG TABLET (FP) PO SCH (13:42)
[2023-12-19] MEDS: QUEtiapine FUMARATE 50 MG TABLET PO SCH (13:42)
[2023-12-19] MEDS: OLANZapine 10 MG TABLET PO SCH (22:25)
[2023-12-20] MEDS: LORazepam 1 MG TABLET PO SCH (06:16)
[2023-12-21] MEDS ORDERED: LORazepam 0.5 MG TABLET PO PRN
[2023-12-21] MEDS: LORazepam 0.5 MG TABLET PO SCH (05:53)
[2023-12-22] MEDS: LORazepam 0.5 MG TABLET PO ONE (05:31)
[2023-12-22 09:44] VITALS: BP 136/82; PULSE 73; RESP 16; TEMP 97.3
== END 2023-12-22 11:28 | disposition home or self-care (01) | DRG 897 ==
LOC: YASAS 06:03 → Y6N 09:02
PROVIDERS: ADMIT Allergy & Immunology; ATTEND Surgery
PROC: HZ2ZZZZ Detoxification Services for Substance Abuse Treatment (ICD-10-PCS; principal; 2023-12-18)
DX: F10.230 Alcohol dependence with withdrawal, uncomplicated (principal); F10.282 Alcohol dependence with alcohol-induced sleep disorder; F10.24 Alcohol dependence with alcohol-induced mood disorder; F25.1 Schizoaffective disorder, depressive type; G62.9 Polyneuropathy, unspecified; I10 Essential (primary) hypertension; J45.20 Mild intermittent asthma, uncomplicated; K21.9 Gastro-esophageal reflux disease without esophagitis; M54.41 Lumbago with sciatica, right side; G89.29 Other chronic pain; R76.11 Nonspecific reaction to tuberculin skin test without active tuberculosis; Z87.891 Personal history of nicotine dependence; Z86.19 Personal history of other infectious and parasitic diseases; Z99.89 Dependence on other enabling machines and devices
CPT/HCPCS: 36415; 80053; 80307; 85027; 86780; 87635; 90686; G0008